=== PATIENT | male | born 1940 | race Caucasian/White ===

== ENCOUNTER 2017-01-02 16:24 | Inpatient (IN) | payer OTHER ==
[~2017-01-02] VITALS: Ht 175.3 cm; Wt 90.7 kg
[2017-01-02] VITALS (32 sets, daily range): BP systolic 57–121; BP diastolic 36–60; PULSE 97–115; TEMP 37.7; O2SAT 79–100; Ht 175.3 cm; Wt 90.7 kg
[2017-01-02] MEDS ORDERED: DOPamine 400MG / 250ML D5W ONE (17:19)
[2017-01-02] MEDS ORDERED: SODIUM BICARB 8.4% INJ 50 MEQ/50 ML SYR IV ONE ×2 (17:19→21:30)
[2017-01-02] MEDS ORDERED: EpINEphrine HCL INJ 4 MG in DEXTROSE 5% 250ML 250 ML IV PRN (17:22)
[2017-01-02 17:54] LABS: ISTAT CREATININE 3.3 mg/dl (0.6-1.3); ISTAT HEMOGLOBIN 9.5 g/dl (14.0-18.0); ISTAT IONIZED CALCIUM 1.09 mmol/l (1.12-1.32)
[2017-01-02 17:54] LABS: ISTAT ARTERIAL BLOOD GAS HCO3 18 meq/L (19-24); ISTAT ARTERIAL BLOOD GAS PCO2 50 mmHg (35-46); ISTAT ARTERIAL BLOOD GAS PO2 38 mmHg (80-95); ISTAT ARTERIAL BLOOD GAS pH 7.15 (7.35-7.45); ISTAT CARBON DIOXIDE 19 mEq/l (24-31); ISTAT HEMATOCRIT 27 % (42-52); ISTAT HEMOGLOBIN 9.2 g/dl (14.0-18.0); ISTAT SODIUM 137 mEq/L (135-144)
[2017-01-02 17:54] LABS: ISTAT ALLEN TEST Pass; ISTAT ARTERIAL BLOOD GAS HCO3 18 meq/L (19-24); ISTAT ARTERIAL BLOOD GAS PCO2 47 mmHg (35-46); ISTAT ARTERIAL BLOOD GAS PO2 63 mmHg (80-95); ISTAT ARTERIAL BLOOD GAS pH 7.19 (7.35-7.45); ISTAT CARBON DIOXIDE 19 mEq/l (24-31); ISTAT DELIVERY SYSTEM Ventilator; ISTAT FIO2 100 %; ISTAT PEEP 15; ISTAT RATE 18; ISTAT SITE R Radial; Vt 550
[2017-01-02] MEDS ORDERED: ALBUMIN HUMAN 25% 12.5 GM/50 ML VIAL IV ONE (18:00)
[2017-01-02] MEDS ORDERED: PATIENT'S ALLERGY INFO NEEDS ENTERED SCH (18:00)
[2017-01-02] MEDS ORDERED: NURSING VERBAL MED ORDER ONE ×2 (18:00→22:00)
[2017-01-02] MEDS ORDERED: HYDROCORTISONE IV 100 MG in SYRINGE 0 ML IV ONE (18:00)
[2017-01-02] MEDS: FENTANYL 1250MCG/250ML NSS 250 ML IV PRN (18:40)
[2017-01-02 18:44] LABS: HEMATOCRIT 29.2 % (42-52); MEAN CELL VOLUME 90.1 fL (80-100); MEAN CORPUSCULAR HEMOGLOBIN 29.3 pg (25-34); MEAN CORPUSCULAR HGB CONC 32.5 g/dl (32-36); MEAN PLATELET VOLUME 10.1 fL (7.4-10.4); PLATELET COUNT 257 K/uL (130-400); RED BLOOD COUNT 3.24 M/uL (4.7-6.1); WHITE BLOOD COUNT 4.01 K/uL (4.8-10.8)
[2017-01-02 18:51] LABS: INR 1.1 (0.9-1.1); PARTIAL THROMBOPLASTIN RATIO 1.2
[2017-01-02] MEDS ORDERED: MoRPHine SULFATE 4 MG/ML 1 ML CARP\\VIAL IV PRN (19:00)
[2017-01-02] MEDS ORDERED: LORAZEPAM 1 MG TAB PO PRN (19:00)
[2017-01-02] MEDS ORDERED: LORAZEPAM 2 MG/ML 1 ML VIAL IV PRN (19:00)
[2017-01-02] MEDS ORDERED: ACETAMINOPHEN 325 MG TAB PO PRN (19:00)
[2017-01-02 19:01] LABS: ALT/SGPT 34 U/L (12-78); AST/SGOT 52 U/L (15-37); BLOOD UREA NITROGEN 54 mg/dl (7-18); BUN/CREATININE RATIO 15.3 (10-20); CALCIUM 6.9 mg/dl (8.5-10.1); CARBON DIOXIDE 19 mmol/L (21-32); CHLORIDE 110 mmol/L (98-107); GLUCOSE 177 mg/dl (70-99); POTASSIUM 4.6 mmol/L (3.5-5.1); SODIUM 140 mmol/L (136-145)
[2017-01-02 19:08] LABS: COMPLETE YES; LYMPH ABS # 0.49 K/uL (1.2-3.4); LYMPHOCYTE % 12.3 %; NEUTROPHILS % 85.1 %; TOXIC GRANULATION 1+; VACUOLIZATION 1+
--- NOTE | 2017-01-02 19:13 | DIAGNOSTIC IMAGING REPORT ---
CHEST ONE VIEW PORTABLE CLINICAL HISTORY: Hypoxia. Pneumonia. COMPARISON STUDY: No previous studies for comparison. FINDINGS: The tip of the endotracheal tube is 8.1 cm above the sidra. The tip of the nasogastric tube is obscured but at least within the distal esophagus. There is no pneumothorax or pleural effusion. There is dense bibasilar consolidation. There is mild interstitial thickening without overt pulmonary edema. Cardiac size is within normal limits. IMPRESSION: 1. Tip of endotracheal tube 8.1 cm above the sidra. 2. Dense bibasilar consolidation suggestive of pneumonia, potentially on the basis of aspiration given this distribution. 3. Tip of nasogastric tube obscured but at least within the distal esophagus. Electronically signed by: Twin Herzog M.D. 01/02/2017 7:11 PM Dictated Date/Time: 01/02/2017 7:10 PM
[2017-01-02 19:24] LABS: ALB/GLOB RATIO 0.6 (0.9-2); ALKALINE PHOSPHATASE 61 U/L (45-117)
[2017-01-02 19:43] LABS: MAGNESIUM 2.1 mg/dl (1.8-2.4); PHOSPHORUS 3.9 mg/dl (2.5-4.9)
[2017-01-02] MEDS ORDERED: PIPERACILL/TAZOBAC CONSULT ACTIVE PRN (19:45)
[2017-01-02] MEDS ORDERED: SODIUM CHLORIDE 0.9% 500ML 500 ML IV SCH ×2 (19:45→21:30)
[2017-01-02] MEDS ORDERED: FENTANYL CITRATE INJ 50 MCG/1 ML 2 ML VIAL IV PRN (19:45)
[2017-01-02] MEDS ORDERED: PIPERACILL/TAZOBAC IV 2.25 GM in DEXTROSE 5% 100ML 100 ML IV SCH (19:45)
[2017-01-02] MEDS ORDERED: PANTOprazole INJ 40 MG in SYRINGE 0 ML IV ONE (19:45)
[2017-01-02] MEDS ORDERED: PATIENT'S HEIGHT AND/OR WEIGHT NEEDED SCH (19:45)
[2017-01-02] MEDS ORDERED: ONDANSETRON INJ 2 MG/ML 2 ML VIAL IV PRN (19:45)
[2017-01-02] MEDS ORDERED: PIPERACILL/TAZOBAC IV 3.375 GM in DEXTROSE 5% 100ML IV ONE (20:00)
[2017-01-02 20:04] LABS: ISTAT ARTERIAL BLOOD GAS HCO3 16 meq/L (19-24); ISTAT ARTERIAL BLOOD GAS PCO2 38 mmHg (35-46); ISTAT ARTERIAL BLOOD GAS PO2 73 mmHg (80-95); ISTAT ARTERIAL BLOOD GAS pH 7.24 (7.35-7.45); ISTAT CARBON DIOXIDE 18 mEq/l (24-31); ISTAT DELIVERY SYSTEM Ventilator; ISTAT FIO2 100 %; ISTAT PEEP 15; ISTAT RATE 18; ISTAT SITE Art Line; VE 13.2; Vt 550
[2017-01-02] MEDS: CHLORHEXIDINE GLUCONATE 0.12% 480 ML MT SCH (20:28)
[2017-01-02] MEDS: HEPARIN SOD 5000 UNIT/0.5 ML CARP SQ SCH (20:28)
[2017-01-02] MEDS: LEVOFLOXACIN / D5W 250 MG in PREMIXED IN D5W 50 ML IV SCH ×2 (20:29→21:28)
[2017-01-02] MEDS ORDERED: ALBUT/IPRATROP 3MG/0.5MG NEB 3 ML VIAL INH SCH (21:00)
[2017-01-02] MEDS ORDERED: LEVALBUTEROL/IPRATROPIUM NEB INH SCH (21:00)
[2017-01-02] MEDS ORDERED: SODIUM BICARB 8.4% INJ 50 MEQ/50 ML SYR IV STA (21:25)
[2017-01-02] MEDS: DOPamine 400MG / D5W 400 MG IV PRN (21:27)
[2017-01-02] MEDS: NOREPINEPHRINE BIT INJ 8 MG in DEXTROSE 5% 500ML 500 ML IV PRN (21:28)
[2017-01-02] MEDS ORDERED: PHARMACY GLYCEMIC MGMT CONSULT PRN (21:44)
[2017-01-02 21:58] LABS: URINE APPEARANCE CLOUDY (CLEAR); URINE BILIRUBIN NEG (NEG); URINE COLOR YELLOW; URINE NITRITE NEG (NEG); URINE SPECIFIC GRAVITY 1.019 (1.000-1.030); UROBILINOGEN NEG (NEG)
[2017-01-02 22:01] LABS: MANUAL MICROSCOPIC REQUIRED? NO; REVIEW REQ? YES
--- NOTE | 2017-01-02 22:13 | Progress Note ---
Progress Note Date of Service Jan 02, 2017. 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 He had an episode of aspiration at home which was witness by his daughter. Sats were 50' s when EMS arrived and reportedly he was poorly responsive. He was on epi, levophed and dopamine at max doses on arrival with [facility]. L femoral arterial and venous central lines placed emergently by me and without consent on arrival here. Family has not come to the hospital but I have spoken to his daughter via phone. My consultation has been dictated. Stat Echo has been performed.
--- NOTE | 2017-01-02 22:42 | History and Physical ---
History & Physical Date & Time of Service: Jan 02, 2017 at 22:15 Chief Complaint: Pneumonia Primary Care Physician: Washington Franco M.D. History of Present Illness Source: patient 76 y/o M Hx COPD, CAD, carotid stenosis, PVD, obesity. Pt is largely bedbound, looked after by family. He was poorly responsive today as reported by his daughter. She elected to feed him some ice cream which he promptly began to choke on and may have aspirated. He was transported to [facility] initially but was hypoxic into the 50s on arrival and required emergent intubation. As they were unable to care for a pt with this degree of acuity, he was life-flighted to [facility]. The pt was unresponsive, intubated and hypotensive requiring multiple pressors to support his BP on arrival. A CXR revealed B/L infiltrates consistent with PNM and possible aspiration. The pt was not able to contribute ti the H&P - the above is sourced from hospital records from [place] and from the pts family. Initial labs ordered - ARF is present on a chem 7 - lactic and trop pending Past Medical/Surgical History 1) CAD - Histroy of abnormal stress followed by a cath 06/05 Allergies Coded Allergies: Iron (Unverified Allergy, Unknown, unknown, 01/02/17) reaction unknown Sulfa Antibiotics (Unverified Allergy, Unknown, unknown, 01/02/17) Physical Exam Vital Signs Date Time Temp Pulse Resp B/P (MAP) Pulse Ox O2 Delivery O2 Flow Rate FiO2 01/02/17 20:00 37.7 01/02/17 19:40 100 01/02/17 19:30 103 16 95 01/02/17 19:30 103 16 95 01/02/17 19:30 103 16 95 01/02/17 19:15 104 18 100 01/02/17 19:15 104 18 100 01/02/17 19:15 104 18 100 01/02/17 19:01 105 18 89/44 97 01/02/17 19:01 105 18 89/44 97 01/02/17 19:00 105 19 98 01/02/17 19:00 105 19 98 01/02/17 19:00 105 18 89/44 (59) 97 01/02/17 18:45 109 19 90 01/02/17 18:30 107 27 91 01/02/17 18:15 112 31 91 01/02/17 18:01 115 30 84/51 86 01/02/17 18:00 109 24 90 01/02/17 18:00 115 30 84/51 (62) 86 01/02/17 17:46 114 22 72/49 79 01/02/17 17:45 113 28 90 01/02/17 17:45 114 22 72/49 (57) 79 01/02/17 17:41 109 31 76/51 90 01/02/17 17:39 113 27 67/36 89 01/02/17 17:30 115 23 01/02/17 17:30 110 28 76/38 (51) 88 01/02/17 17:30 100 01/02/17 17:28 112 21 67/ 89 01/02/17 17:21 110 28 76/38 88 01/02/17 17:16 107 28 57/42 01/02/17 17:15 107 28 57/42 (47) 01/02/17 17:15 109 29 90 General Appearance: + pertinent finding (Unresponsive - pupils equal and sluggish) Head: normocephalic, atraumatic Eyes: normal inspection, PERRL, EOMI ENT: normal ENT inspection, pharynx normal Neck: supple, + JVD Respiratory/Chest: + decreased breath sounds, + pertinent finding (limited exam due to large air noises) Cardiovascular: normal peripheral pulses, + tachycardia, + systolic murmur Abdomen/GI: normal bowel sounds, non tender, soft Extremities/Musculoskelatal: + pedal edema Neurologic/Psych: + pertinent finding (unresponsive) Skin: warm/dry, no rash, + pertinent finding (pallor is present) Diagnostics Laboratory Results Results Past 24 Hours Test 01/02/17 17:22 01/02/17 17:35 01/02/17 17:43 01/02/17 18:11 Range/Units Bedside Hemoglobin 9.2 9.5 14.0-18.0 g/dl Bedside Hematocrit 27 28 42-52 % Bedside Blood Gas pH (LAB) 7.15 7.19 7.35-7.45 Bedside Blood Gas pCO2 (LAB) 50 47 35-46 mmHg Bedside Blood Gas pO2 (LAB) 38 63 80-95 mmHg Bedside Blood Gas HCO3 (LAB) 18 18 19-24 meq/L Bedside Blood Gas Total CO2 19 19 24-31 mEq/l Bedside Blood Gas Base Excess (LAB) -11.0 -10.0 -9-1.8 meq/L Bedside Blood Gas O2 Saturation 57.0 86.0 90-95 % Bedside Sodium 137 139 135-144 mEq/L Bedside Potassium 4.6 4.7 3.3-5.0 mEq/L Blood Gas Sample Site R Radial Ra Test Pass Oxygen Delivery Device Ventilator Bedside Oxygen Rate (breaths/min) 18 Bedside FiO2 100 % Blood Gas Tidal Volume 550 Blood Gas PEEP 15 Bedside Chloride 108 101-112 mEq/L Bedside Total CO2 20 24-31 mEq/l Anion Gap 17.0 11.0 3-11 mmol/L Bedside Blood Urea Nitrogen 54 7-18 mg/dl Bedside Creatinine 3.3 0.6-1.3 mg/dl Bedside Glucose (other) 189 70-99 mg/dl Bedside Ionized Calcium (Gavin) 1.09 1.12-1.32 mmol/l White Blood Count 4.01 4.8-10.8 K/uL Red Blood Count 3.24 4.7-6.1 M/uL Hemoglobin 9.5 14.0-18.0 g/dL Hematocrit 29.2 42-52 % Mean Corpuscular Volume 90.1 80-100 fL Mean Corpuscular Hemoglobin 29.3 25-34 pg Mean Corpuscular Hemoglobin Concent 32.5 32-36 g/dl Platelet Count 257 130-400 K/uL Mean Platelet Volume 10.1 7.4-10.4 fL RDW Standard Deviation 51.7 36.4-46.3 fL RDW Coefficient of Variation 15.7 11.5-14.5 % Neutrophils % (Manual) 85.1 % Lymphocytes % (Manual) 12.3 % Monocytes % (Manual) 2.6 % Neutrophils # (Manual) 3.41 1.4-6.5 K/uL Total Absolute Neutrophils 3.41 1.4-6.5 K/uL Lymphocytes # (Manual) 0.49 1.2-3.4 K/uL Total Absolute Lymphocytes 0.49 1.2-3.4 K/uL Monocytes # (Manual) 0.10 0.11-0.59 K/uL Toxic Granulation 1+ Toxic Vacuolation 1+ Prothrombin Time 12.0 9.0-12.0 SECONDS Prothromb Time International Ratio 1.1 0.9-1.1 Activated Partial Thromboplast Time 32.4 21.0-31.0 SECONDS Partial Thromboplastin Ratio 1.2 Sodium Level 140 136-145 mmol/L Potassium Level 4.6 3.5-5.1 mmol/L Chloride Level 110 98-107 mmol/L Carbon Dioxide Level 19 21-32 mmol/L Blood Urea Nitrogen 54 7-18 mg/dl Creatinine 3.50 0.60-1.40 mg/dl Estimated GFR () 18.6 Estimated GFR (Non- 16.0 BUN/Creatinine Ratio 15.3 10-20 Random Glucose 177 70-99 mg/dl Calcium Level 6.9 8.5-10.1 mg/dl Phosphorus Level 3.9 2.5-4.9 mg/dl Magnesium Level 2.1 1.8-2.4 mg/dl Total Bilirubin 1.1 0.2-1 mg/dl Aspartate Amino Transf (AST/SGOT) 52 15-37 U/L Alanine Aminotransferase (ALT/SGPT) 34 12-78 U/L Alkaline Phosphatase 61 45-117 U/L Total Protein 5.9 6.4-8.2 gm/dl Albumin 2.2 3.4-5.0 gm/dl Globulin 3.7 2.5-4.0 gm/dl Albumin/Globulin Ratio 0.6 0.9-2 Test 01/02/17 19:51 01/02/17 21:27 01/02/17 21:34 Range/Units Blood Gas Sample Site Art Line Bedside Blood Gas pH (LAB) 7.24 7.35-7.45 Bedside Blood Gas pCO2 (LAB) 38 35-46 mmHg Bedside Blood Gas pO2 (LAB) 73 80-95 mmHg Bedside Blood Gas HCO3 (LAB) 16 19-24 meq/L Bedside Blood Gas Total CO2 18 24-31 mEq/l Bedside Blood Gas Base Excess (LAB) -11.0 -9-1.8 meq/L Bedside Blood Gas O2 Saturation 92.0 90-95 % Ar Test NA Oxygen Delivery Device Ventilator Bedside Oxygen Rate (breaths/min) 18 Blood Gas Minute Ventilation 13.2 Bedside FiO2 100 % Blood Gas Tidal Volume 550 Blood Gas PEEP 15 Creatine Kinase MB Ratio 0-3.0 Urine Color YELLOW Urine Appearance CLOUDY CLEAR Urine pH 5.0 4.5-7.5 Urine Specific [place] 1.019 1.000-1.030 Urine Protein TRACE NEG Urine Glucose (UA) NEG NEG Urine Ketones NEG NEG Urine Occult Blood 3+ NEG Urine Nitrite NEG NEG Urine Bilirubin NEG NEG Urine Urobilinogen NEG NEG Urine Leukocyte Esterase NEG NEG Microbiology Results 01/02/17 MRSA DNA Surveillance Screen - Final, Complete Specimen Negative for MRSA by DNA Probe 01/02/17 Gram Stain, Ordered Pending 01/02/17 Sputum Culture, Ordered Pending 01/02/17 Urine Culture, Ordered Pending Diagnostic Radiology CXR 1. Tip of endotracheal tube 8.1 cm above the sidra. 2. Dense bibasilar consolidation suggestive of pneumonia, potentially on the basis of aspiration given this distribution. 3. Tip of nasogastric tube obscured but at least within the distal esophagus. Impression Assessment and Plan 76 y/o M Hx COPD, CAD, carotid stenosis, PVD, obesity. Pt is largely bedbound, looked after by family. He was poorly responsive today as reported by his daughter. She elected to feed him some ice cream which he promptly began to choke on and may have aspirated. He was transported to [facility] initially but was hypoxic into the 50s on arrival and required emergent intubation. As they were unable to care for a pt with this degree of acuity, he was life-flighted to [facility]. The pt was unresponsive, intubated and hypotensive requiring multiple pressors to support his BP on arrival. A CXR revealed B/L infiltrates consistent with PNM and possible aspiration. 1) Shock - presumed septic due to aspiration PNM. However, the pt may have been anoxic for an extended period prior to arrival leading to cardiac ischemia and a degree of cardiogenic shock. A stat echo is pending and if his EF is reduced we would consider addition of Dobutamine. Clinically, there are no signs of marked volume overload that would indicate cardiogenic shock. The pt has been placed on broad spectrum coverage with Zosyn and remains on pressor support. 2) CAD - Trop pending - should remain on ASA, Statin - would not tolerate B edilia presently 3) COPD - Placed on scheduled nebs and should receive steroids due to degree of illness although bronchospasm is not apparent 4) ARF - likely acute on chronic - Aggressive IVF - trend BMP Full code - Heparin prophylaxis - increase to full dose if evidence of ACS/ elevated trop Total time for this admit including review of labs, meds, EKG, critical care time - discussion with attending at [place] Level of Care Critical Care Resuscitation Status FULL RESUSCITATION VTE Prophylaxis VTE Risk Assessment Done? Y/N: Yes Risk Level: High Given or contraindicated: Unfractionated heparin SQ
[2017-01-02] MEDS ORDERED: DEXTROSE 50% 50 ML SYR IV PRN (23:00)
[2017-01-02] MEDS ORDERED: GLUCOSE 10 TABS/TUBE PO PRN (23:00)
[2017-01-02] MEDS ORDERED: GLUCAGON FOR INJ 1 MG VIAL SQ PRN (23:00)
[2017-01-02] MEDS ORDERED: GLUCOSE 40% GEL 15 GM TUBE PO PRN (23:00)
[2017-01-02] MEDS: VASOPRESSIN INJ 50 UNITS in SODIUM CHLORIDE 0.9% 500ML 500 ML IV PRN (23:13)
[2017-01-02] MEDS: INSULIN ASPART 100 UNITS/ML 3 ML PEN SC SCH (23:34)
[2017-01-02 23:38] LABS: CKMB/CK RATIO 0.6 (0-3.0)
--- NOTE | 2017-01-02 23:39 | CRITICAL CARE CONSULTATION ---
DATE OF CONSULTATION: 01/02/2017 CHIEF COMPLAINT: Shortness of breath. HISTORY OF PRESENT ILLNESS: The patient is a 76-year-old man, who was transferred from [facility] to [facility] this afternoon after he was found, reportedly, with agonal respirations by EMS. His daughter tells me he is not very mobile around the house, primarily due to weakness and what is, probably, some ongoing debilitation. He spends much of his time in the wheelchair or in bed. He feels like he was in his normal state of health until this afternoon; she was feeding him ice cream and he started to choke on it. Eventually, the ice cream came out his nose, but he was not able to breathe. He had a very panicked look on his face and eventually, was able take a few breaths. She thought he was okay and left the bedroom, but came back to find him sideways and part way off the bed, telling her, "the good Lord is coming to get me." He also reports that earlier in the day, he was incontinent in bed and had 2 episodes of diarrhea. He has been coughing for the past several days, but not coughing anything up. It is not unusual for him to have frequent bowel movements. The patient was taken to [facility], where he was intubated and reportedly, a white creamy material was coming out of the endotracheal tube. He was persistently hypotensive and was given 3 liters of IV fluids and started on Levophed. It looks as if he was hypotensive for quite some time. A CT scan of the head showed no acute process and a CT scan of the chest, abdomen and pelvis showed extensive bilateral airspace disease, age indeterminate, slightly displaced fractures, posterior right 11th and 12th ribs, a 48 x 47 mm fusiform infrarenal abdominal aortic aneurysm, minimally increased in size, mild esophageal wall thickening, other chronic findings. Our hospitalist team was contacted for possible transfer. I called the Emergency Department and discussed the patient's care with the attending there, as [facility] was packing him up to come here. When the patient arrived here, he was hypotensive with a blood pressure in the 80s, on Levophed, epinephrine and dopamine at nearly maximum doses. Oxygen saturations were 80%-85%. They immediately increased his PEEP and he was already on 100% FiO2. I emergently placed a left femoral arterial and triple lumen catheters. He is not having any secretions from the endotracheal tube. PAST MEDICAL HISTORY: Coronary artery disease, status post a left circumflex stent on 10/09/2016 at [facility], hypertension, hyperlipidemia, obesity, CVA. PAST SURGICAL HISTORY: Status post carotid endarterectomy. ALLERGIES: MORPHINE, IBUPROFEN AND POSSIBLY SULFA ANTIBIOTICS. OUTPATIENT MEDICATIONS: Have not been confirmed. The medication list I have presently is amlodipine 5 mg at bedtime, aspirin 81 mg daily, atorvastatin 20 mg at bedtime, Coreg 3.125 mg b.i.d., Plavix 75 mg daily, doxepin 20 mg at bedtime, isosorbide mononitrate 30 mg q.a.m., lisinopril 2.5 mg daily, melatonin q.p.m., nitroglycerin sublingual p.r.n., OxyContin, unknown dose b.i.d., Effexor 75 mg b.i.d. Again, these have not been verified. SOCIAL HISTORY: He lives with his in [place]. His daughter, Seema, tells me she is his primary caregiver. He has smoked at least three-quarter pack of cigarettes for many years and does not drink any alcohol. FAMILY HISTORY: Noncontributory due to his age. REVIEW OF SYSTEMS: Difficult to obtain. Family is not at the bedside. I spent a significant amount of time on the telephone with his daughter, Seema. He seems to have been in his usual poor state of health before he started coughing and had the event today. PHYSICAL EXAMINATION: VITAL SIGNS: Temperature 37.7, heart rate 110, respiratory rate 16, blood pressure 89-100/40s-50s, oxygen saturation 95%. VENTILATOR SETTINGS: Assist control, rate 18, tidal volume 500, FiO2 100%, PEEP 15. NEUROLOGIC: He will withdraw to pain with the bilateral lower extremities. He opens his eyes, but does not follow commands. HEENT: Pupils are equal, but small, bilaterally. There is an endotracheal tube in place. NECK: Shows a left carotid endarterectomy scar. Trachea midline. LUNGS: With decreased breath sounds throughout, particularly at the bases, where there are some mild rales. HEART: Tachycardic, regular. I do not hear any murmurs. ABDOMEN: Mildly distended, firm, hypoactive bowel sounds. No tympany. EXTREMITIES: Somewhat cool. No edema. Radial and dorsalis pedis pulses are 1+ bilaterally. He has very thick toenails. LABORATORY DATA: From [facility], white blood cell count 4.01, hemoglobin 9.5, hematocrit 29.2, platelets 257. Sodium 140, potassium 4.6, chloride 110, CO2 19. BUN 54, creatinine 3.5, blood sugar 177, calcium 6.9. Total bilirubin 1.1, AST 52, ALT is 34. Total protein 5.9, albumin 2.2. PT 12, INR 1.1, PTT 32.4, pH 7.15, pCO2 of 50, pO2 38, HCO3 18. Urinalysis pending. EKG shows sinus tachycardia with nonspecific ST-T wave changes. Portable chest x-ray shows the endotracheal tube to be far above the sidra with bibasilar consolidation. IMPRESSION: 1. Acute hypoxemic respiratory failure, secondary to aspiration. It is unclear to me whether or not this man might have had an anoxic injury. Reportedly, his oxygen saturations were in the 50s when EMS arrived. 2. Hypotension, which, I believe, is likely a combination of hypovolemia and possibly, severe sepsis or septic shock. A stat echocardiogram did not show overt left ventricular dysfunction. He continues to require epinephrine, Levophed and dopamine infusions. 3. Acute kidney injury. 4. Coronary artery disease, status post a left circumflex stent in September of this year. 5. Abdominal aortic aneurysm. 6. Anemia. 7. History of hypertension. 8. Aspiration pneumonia. 9. History of cerebrovascular accident. PLAN: NEUROLOGIC: Continue fentanyl infusion. He also has p.r.n. fentanyl. Consider EEG tomorrow. PULMONARY: Wean the FiO2 for oxygen saturations greater than or equal to 92%. His lungs are not particularly stiff presently, with peak airway pressures in the 20s. Plateau pressure is pending. We are making some progress on his hypercapnia. Consider paralysis and low tidal volume high PEEP strategy, if his lungs become more stiff. Continue bronchodilators. CARDIOVASCULAR: Rule out myocardial infarction with serial cardiac enzymes. Wean vasopressors, I would like to get the dopamine off first, if at all possible. Consider adding aspirin. Await the echocardiogram report. GASTROINTESTINAL: Maintain n.p.o. and give Protonix IV for GI prophylaxis. RENAL: He has a Garcia in place. Urinalysis is pending. Urine output is starting to improve. Watch the potassium and consider renal consult, if his creatinine continues to rise. Hopefully, he will not need continuous renal replacement therapy. HEMATOLOGY: Subcutaneous heparin for DVT prophylaxis. I will not put him on Plavix, until I can verify that he was actually on it before this event. INFECTIOUS DISEASE: I have re-ordered the Zosyn. I have also added Levaquin. I am concerned about giving him vancomycin, secondary to his renal dysfunction. Hold any MRSA coverage for now. ENDOCRINE: He is receiving hydrocortisone 100 mg IV q. 8 hours. He has a multisystem organ failure and I tried to impress upon his daughter how ill he is. Her questions were answered. The patient's family is not coming to the hospital tonight, although I suggested they do so. Please call me with any questions or concerns. Critical care time, excluding procedures, 130 minutes.
[2017-01-03] VITALS (39 sets, daily range): BP systolic 93–147; BP diastolic 43–98; PULSE 51–101; TEMP 36.9–37.9; O2SAT 92–100
[2017-01-03] MEDS: HYDROCORTISONE IV 100 MG in SYRINGE 0 ML IV SCH ×2 (01:38→09:12)
[2017-01-03] MEDS: IPRATROPIUM BROMIDE HFA INHALER INH SCH ×4 (02:00→18:50)
[2017-01-03] MEDS: ALBUTEROL HFA 8 GM INHALER INH SCH ×4 (02:00→18:50)
--- NOTE | 2017-01-03 02:01 | OPERATIVE REPORT ---
DATE OF OPERATION: 01/02/2017 PROCEDURE: Left femoral arterial catheter placement and venous triple lumen catheter placement. PRE-PROCEDURE DIAGNOSIS: Acute hypoxemic respiratory failure. POST-PROCEDURE DIAGNOSIS: Same. INDICATION: Need for continuous blood pressure monitoring and adequate IV access for multiple vasopressors. Time of the procedure was approximately 6:00 p.m. today, which is January 02. PROCEDURE: These lines were done emergently and without consent, secondary to the patient's acuity of illness. He was on maximum doses of dopamine, Levophed and epinephrine with a cuff blood pressure of 70. A timeout was performed and the patient was placed supine. The left groin was shaved with clippers. I donned a hat, mask, sterile gown and sterile gloves and prepared the left groin with chlorhexidine. I then draped the patient in sterile fashion. Using the ultrasound, I was able to identify the left femoral artery and placed a 20-gauge needle from the [employer] arterial catheterization kit into the artery. A wire was placed through the needle. The needle was removed. A 12-cm arterial catheter was placed over the wire and connected to a transducer. This was secured with a StatLock. I then used an 18-gauge needle to cannulate the left femoral vein. A wire was placed through the needle and the needle was removed. A #11 scalpel blade was used to make a sky in the skin adjacent to the wire, before the vein was dilated over the wire. The triple lumen catheter was then placed over the wire and the wire was removed. All 3 ports had good blood flow and flushed easily. The line was then sutured into place. Hemostasis was achieved and there was no hematoma. The patient tolerated the procedure well. He did receive some lidocaine, 1%, adjacent to his femoral vasculature prior to cannulating either vessel. I notified his family of the procedures via telephone later on this evening. I attest to the content of the Intraoperative Record and any orders documented therein. Any exception s are noted below.
[2017-01-03] MEDS: DOPamine 400MG / D5W 400 MG IV PRN (02:07)
[2017-01-03] MEDS: NOREPINEPHRINE BIT INJ 8 MG in DEXTROSE 5% 500ML 500 ML IV PRN ×2 (02:08→09:40)
[2017-01-03] MEDS: PIPERACILL/TAZOBAC IV 3.375 GM in DEXTROSE 5% 100ML IV SCH ×2 (03:39→16:27)
[2017-01-03] MEDS ORDERED: INSULIN GLARGINE SOLOSTAR 100 UNITS/ML 3 ML PEN SC STA (03:52)
[2017-01-03] MEDS ORDERED: INSULIN ASPART 100 UNITS/ML 3 ML PEN SC STA (03:54)
[2017-01-03] MEDS ORDERED: INSULIN ASPART 100 UNITS/ML 3 ML PEN SC SCH (04:00)
[2017-01-03 05:12] LABS: HEMATOCRIT 27.2 % (42-52); MEAN CELL VOLUME 87.7 fL (80-100); MEAN CORPUSCULAR HEMOGLOBIN 29.4 pg (25-34); MEAN CORPUSCULAR HGB CONC 33.5 g/dl (32-36); MEAN PLATELET VOLUME 9.5 fL (7.4-10.4); PLATELET COUNT 195 K/uL (130-400); WHITE BLOOD COUNT 10.26 K/uL (4.8-10.8)
[2017-01-03 05:37] LABS: BUN/CREATININE RATIO 17.2 (10-20); CALCIUM 6.9 mg/dl (8.5-10.1); CREATININE 2.7 mg/dl (0.60-1.40); MAGNESIUM 1.8 mg/dl (1.8-2.4); POTASSIUM 4.5 mmol/L (3.5-5.1)
[2017-01-03] MEDS: HEPARIN SOD 5000 UNIT/0.5 ML CARP SQ SCH ×3 (05:50→20:07)
[2017-01-03] MEDS: INSULIN ASPART 100 UNITS/ML 3 ML PEN SC SCH ×3 (05:51→18:00)
[2017-01-03 05:52] LABS: CKMB/CK RATIO 0.6 (0-3.0); PHOSPHORUS 2.9 mg/dl (2.5-4.9)
[2017-01-03 07:37] LABS: COMPLETE YES; DOHLE BODIES 2+; ECHINOCYTES 1+; LYMPH ABS # 0.27 K/uL (1.2-3.4); LYMPHOCYTE % 2.6 %; META ABS # 1.07 K/uL (0-0); METAMYELOCYTE % 10.4 %; NEUTROPHILS % 79.2 %; TOXIC GRANULATION 2+; VACUOLIZATION 1+
--- NOTE | 2017-01-03 07:38 | DIAGNOSTIC IMAGING REPORT ---
CHEST ONE VIEW PORTABLE CLINICAL HISTORY: respiratory failure s/p aspiration COMPARISON STUDY: 01/02/2017 FINDINGS: The cardiac and mediastinal contours remain stable. A nasogastric tube is again evident. There is an endotracheal tube 6.9 cm above the sidra. There are bilateral pulmonary airspace opacities with a lower lung zone predominance. These remain similar.[ No pleural effusions are visualized. IMPRESSION: 1. Persistent bilateral pulmonary airspace opacities with a lower lung zone predominance 2. Endotracheal tube 6.9 cm above the sidra Electronically signed by: Camilo Washburn M.D. 01/03/2017 7:37 AM Dictated Date/Time: 01/03/2017 7:36 AM
[2017-01-03] MEDS ORDERED: PNEUMOCOCCAL ADMINISTRATION CHARGE ONE (08:00)
[2017-01-03] MEDS ORDERED: PNEUMOCOCCAL POLYSACCHARIDES 25 MCG/0.5 ML VIAL/SYR IM. ONE (08:00)
--- NOTE | 2017-01-03 08:06 | ECHOCARDIOGRAM REPORT ---
*NOTICE TO RECEIVING LIBERTARIAN AGENCY This information is strictly Confidential and protected under [place] law. [place] law prohibits you from making any further disclosure of this information unless further disclosure is expressly permitted by the written consent of the person to whom it pertains or is authorized by law. A general authorization for the release of medical or other information is not sufficient for this purpose. Hospital accepts no responsibility if the information is made available to any other person, INCLUDING THE PATIENT. Interpretation Summary * Name: MARIANNE RODRIGUEZ Study Date: 01/02/2017 07:53 PM BP: 89/44 mmHg * [facility] HR: 103 * : 1940 (M/d/yyyy) Gender: Male * Age: 76 yrs Ethnicity: CA * Ordering Physician: Vero Spann * Referring Physician: Reinier Natarajan * Performed By: Génesis Long RDCS * * Reason For Study: Shock * -- Conclusions -- * The study was technically limited. * Limited views were obtained. * Left ventricular systolic function is low normal. * Grade I diastolic dysfunction, (abnormal relaxation pattern). * Mild to moderate valvular aortic stenosis. * Right ventricular systolic pressure is normal. Procedure Details * A complete two-dimensional transthoracic echocardiogram was performed (2D, M-mode, Doppler and color flow Doppler). * The study was technically limited. * The study was technically difficult. * There were technical limitations due to patient'ssupine positioning while on mechanical ventilation * Limited views were obtained. Left Ventricle * The left ventricle is grossly normal size. * Left ventricular systolic function is low normal. * Ejection Fraction = 50-55%. * Grade I diastolic dysfunction, (abnormal relaxation pattern). Right Ventricle * The right ventricle is grossly normal size. * The right ventricular systolic function is normal. * The right ventricular systolic function is normal as assessed by tricuspid annular plane systolic excursion (TAPSE) (normal >1.5 cm). Atria * The left atrial size is normal. * Right atrial size is normal. Mitral Valve * The mitral valve is grossly normal. * Significant mitral regurgitation is absent. Tricuspid Valve * There is mild tricuspid regurgitation. * Right ventricular systolic pressure is normal. Aortic Valve * The aortic valve is trileaflet. * Mild to moderate valvular aortic stenosis. * Gradients are possibly underestimated due to technical limitations. Not severe . * There is no significant aortic regurgitation. Great Vessels * The aortic root is normal size. Pericardium/Pleural * There is no pericardial effusion. Great Vessels * Normal inferior vena cava diameter and respiratory variation suggests normal central venous pressure. MMode 2D Measurements and Calculations IVSd 0.81 cm LVIDd 4.3 cm LVIDs 2.9 cm LVPWd 0.74 cm IVS/LVPW 1.1 FS 31.7 % EDV(Teich) 83.0 ml ESV(Teich) 33.3 ml EF(Teich) 59.9 % EDV(cubed) 79.4 ml ESV(cubed) 25.4 ml EF(cubed) 68.1 % LV mass(C)d 101.4 grams SV(Teich) 49.8 ml SV(cubed) 54.1 ml Ao root diam 3.8 cm Ao root area 11.4 cm\S\2 LVOT diam 2.0 cm LVOT area 3.2 cm\S\2 Doppler Measurements and Calculations MV E max pascual 73.7 cm/sec MV A max pascual 93.1 cm/sec MV E/A 0.79 MV dec time 0.24 sec Ao V2 max 232.8 cm/sec Ao max PG 21.7 mmHg Ao max PG (full) 15.1 mmHg Ao V2 mean 167.5 cm/sec Ao mean PG 12.4 mmHg Ao V2 VTI 36.6 cm NILSA(V,A) 1.7 cm\S\2 NILSA(V,D) 1.7 cm\S\2 LV V1 max PG 6.6 mmHg LV V1 max 128.5 cm/sec SV(Ao) 415.8 ml PA V2 max 103.2 cm/sec PA max PG 4.3 mmHg PA acc slope 771.4 cm/sec\S\2 PA acc time 0.12 sec TR max pascual 157.5 cm/sec PA pr(Accel) 23.5 mmHg
[2017-01-03 08:14] LABS: ISTAT ARTERIAL BLOOD GAS HCO3 18 meq/L (19-24); ISTAT ARTERIAL BLOOD GAS PCO2 35 mmHg (35-46); ISTAT ARTERIAL BLOOD GAS PO2 118 mmHg (80-95); ISTAT ARTERIAL BLOOD GAS pH 7.32 (7.35-7.45); ISTAT CARBON DIOXIDE 19 mEq/l (24-31); ISTAT DELIVERY SYSTEM Ventilator; ISTAT FIO2 70 %; ISTAT PEEP 15; ISTAT RATE 2; ISTAT SITE Art Line; VE 13.1; Vt 550
[2017-01-03] MEDS: PANTOprazole INJ 40 MG in SYRINGE 0 ML IV SCH (09:12)
[2017-01-03] MEDS: CHLORHEXIDINE GLUCONATE 0.12% 480 ML MT SCH ×2 (09:13→21:30)
[2017-01-03] MEDS: MAGNESIUM SULFATE 1GM / D5W 1 GM in PREMIXED IN D5W 100 ML IV SCH ×2 (10:07→11:16)
[2017-01-03] MEDS ORDERED: PROPOFOL IV EMULSION 10 MG/ML 100 ML VIAL IV ONE (11:56)
--- NOTE | 2017-01-03 12:27 | CRITICAL CARE PROGRESS NOTE ---
DATE: 01/03/2017 GENERAL INFORMATION: This is a 76-year-old man transferred from [facility] yesterday evening secondary to aspiration pneumonitis and acute hypoxemic respiratory failure. He was also in shock and required Levophed, dopamine and epinephrine at maximum doses. Over the course of the night last night, his vasopressors were weaned. He is now off epinephrine and dopamine. Vasopressin was also added last night. The Levophed is being weaned as well. He is not having any significant endotracheal tube secretions. He is not presently on tube feeds. He has not had a bowel movement. PHYSICAL EXAMINATION: VITAL SIGNS: Maximum temperature 37.9, heart rate 92-105, respiratory rate 14-18, blood pressure 130-150/60s-70s, oxygen saturation 99%. Ventilator settings: Assist control, tidal volume 550, rate 18, FiO2 60%, PEEP 12. 24-hour fluid balance positive 957 mL. NEUROLOGIC: Opens eyes, follows commands. CAM assessment is positive. LUNGS: Very decreased breath sounds at the bases. I do not hear any wheezes or rhonchi. Some rales in the right base, very faintly. HEART: Regular rate and rhythm. ABDOMEN: Firm, nondistended, nontender. Active bowel sounds. EXTREMITIES: Warm, trace edema throughout. MEDICATIONS AND INFUSIONS: Acetaminophen, albuterol, chlorhexidine, fentanyl infusion, p.r.n. fentanyl, subcutaneous heparin, hydrocortisone, NovoLog, Atrovent, Levaquin day 2, magnesium sulfate, norepinephrine, Zofran, Protonix, Zosyn day 2, vasopressin. POSSIBLE OUTPATIENT MEDICATIONS: Isosorbide mononitrate 30 mg daily, venlafaxine 75 mg b.i.d., amlodipine 5 mg daily, carvedilol 3.125 mg b.i.d., atorvastatin 20 mg daily, and lisinopril 2.5 mg daily. LABORATORY DATA: White blood cell count 10.26, hemoglobin 9.1, hematocrit 27.2, platelets 195. Sodium 137, potassium 4.5, chloride 106, CO2 of 20, BUN 46, creatinine 2.7, blood sugar 259, calcium 6.9, direct bilirubin 0.5, AST 50, troponin 0.15. Total CPK 1418. Sputum Gram stain shows few Gram-positive cocci and rare yeast, culture pending, urine culture pending. Portable chest x-ray from this morning shows persistent bilateral pulmonary airspace opacities with lower lung predominance and endotracheal tube 7 cm above the sidra. IMPRESSION: 1. Acute hypoxemic respiratory failure secondary to aspiration, now with likely pneumonitis and acute respiratory distress syndrome, improving. He is on bronchodilators as well as empiric antibiotics. 2. Shock, which was likely a combination of hypovolemia and sepsis. Improved. 3. Acute kidney injury, improved. 4. History of coronary artery disease, status post left circumflex stent. 5. Abdominal aortic aneurysm, essentially unchanged on most recent CT. 6. Anemia, stable, no signs of acute blood loss. 7. History of cerebrovascular accident. 8. Hypomagnesemia. 9. Very mildly elevated troponin. PLAN: NEUROLOGIC: Continue fentanyl infusion. He also has p.r.n. fentanyl. PULMONARY: The FiO2 has been weaned to 60% this morning. Wean the PEEP gradually. Depending on where his vent settings are this afternoon, consider a CPAP trial. Continue bronchodilators and empiric antibiotics. CARDIOVASCULAR: Wean vasopressors. Of note, echocardiogram report has been reviewed. Consider adding back his atorvastatin. His medications will need to be verified GASTROINTESTINAL: Continue n.p.o. for today unless he is completely off vasopressors for several hours by the end of the day. Continue IV Protonix for GI prophylaxis. RENAL: Adequately adjust medication dosing and avoid nephrotoxins. I suspect his renal dysfunction is secondary to ATN. INFECTIOUS DISEASE: Await sputum culture and continue Zosyn and Levaquin. Could consider Zyvox, although MRSA is negative. HEME: Continue subcutaneous heparin. Add SCDs. ENDOCRINE: Wean hydrocortisone, glycemic consult. Overall, he has done quite well considering his acuity of illness yesterday when he arrived here. I will update his family when I see them. Evidently they are due to visit sometime today. Critical care time 60 minutes. MARIA LUISAD
--- NOTE | 2017-01-03 14:42 | Pharmacy Progress Note ---
Glycemic Control Intl Consult Date of Service Jan 03, 2017. Scope Glycemic Pharmacist consulted by Dr Spann on 01/02/17 for glycemic control and to write orders per [facility] inpatient glycemic control protocol. Objective Weight (Kilograms): 95.700 Accuchecks BSG (last 24hrs): Test 01/02/17 18:11 01/03/17 05:04 01/03/17 12:12 Random Glucose 177 mg/dl (70-99) 259 mg/dl (70-99) Bedside Glucose 179 mg/dl (70-99) Laboratory Data (last 24hrs) Test 01/02/17 17:43 01/02/17 18:11 01/03/17 05:04 Anion Gap 17.0 mmol/L 11.0 mmol/L 11.0 mmol/L BUN/Creatinine Ratio 15.3 17.2 Blood Urea Nitrogen 54 mg/dl 46 mg/dl Creatinine 3.50 mg/dl 2.70 mg/dl Potassium Level 4.6 mmol/L 4.5 mmol/L Sodium Level 140 mmol/L 137 mmol/L White Blood Count 4.01 K/uL 10.26 K/uL Red Blood Count 3.24 M/uL 3.10 M/uL Hemoglobin 9.5 g/dL 9.1 g/dL Hematocrit 29.2 % 27.2 % Mean Corpuscular Volume 90.1 fL 87.7 fL Mean Corpuscular Hemoglobin 29.3 pg 29.4 pg Mean Corpuscular Hemoglobin Concent 32.5 g/dl 33.5 g/dl Platelet Count 257 K/uL 195 K/uL Mean Platelet Volume 10.1 fL 9.5 fL Recent Pertinent Medications Outpatient Anti-diabetic Regimen: * none * HbA1c -- none on file, will order with tomorrow's am labs Risk Factors for Insulin Resistance: * Steroids: Hydrocortisone IV 100mg q8h --> taper to 50mg q8h starting this evening * Infection: LVQ, Zosyn for suspected aspiration pna * Pressors: Levophed, Vasopressin * Diet: NPO * Mechanical Ventilation: yes, fentanyl gtt for sedation Assessment & Plan ASSESSMENT: * Patient is a 76yo non-diabetic male, currently with significant stress-induced /steroid-induced hyperglycemia. * Lantus 15 units x1 dose given early this morning, with some resolution in BSG (271 --> 179). * Steroids are tapering this evening from Hydrocortisone 100mg IV q8h --> 50mg IV q8h. * Expect that BSGs will improve as steroid continues to taper. Will continue to provide correctional insulin with Novolog and will consider an additional dose of Lantus this evening, depending on evening BSG. * Patient is not likely to require Lantus once steroids are cut and stressors begins to resolve. Will also need to loosen Novolog parameters. Will continue to follow closely. * ADA & AACE recommend a goal blood sugar range 140-180 mg/dl for the majority of critically ill & non-critically ill patients. However, more stringent targets may be selected in individual cases. PLAN FOR INPATIENT GLYCEMIC CONTROL: * Basal insulin with LANTUS 15 units SQ x1 dose given at ~0400 this am. * Give additional 10 units tonight at midnight if BSG greater than 140mg/dL * Correctional Insulin with NOVOLOG per scale ACHS or Q6hrs while NPO * Goal Range: Low 140 mg/dL - High 180 mg/dL * Correction Factor: 15 mg/dL/unit * Nutritional / Prandial insulin: none * Please note that the plan above was derived based on current level of insulin resistance and hospital stress. These recommendations are appropriate for inpatient admission only. Plan of care upon discharge will need to be reassessed to avoid potential outpatient hypo/hyperglycemia. Thank you.
--- NOTE | 2017-01-03 16:06 | Progress Note ---
Subjective Date of Service: Jan 03, 2017. Objective Vital Signs Date Time Temp Pulse Resp B/P (MAP) Pulse Ox O2 Delivery O2 Flow Rate FiO2 01/03/17 15:00 80 17 114/60 98 01/03/17 14:00 82 17 115/59 98 01/03/17 13:52 60 01/03/17 13:00 81 17 93/55 (68) 01/03/17 13:00 81 17 93/55 92 01/03/17 12:00 98 Mechanical Ventilator 60 01/03/17 12:00 97 21 122/67 92 01/03/17 12:00 60 01/03/17 12:00 37.1 97 21 122/67 (85) 92 01/03/17 11:20 60 01/03/17 11:00 89 20 120/70 97 01/03/17 10:00 96 19 108/69 (82) 97 01/03/17 10:00 96 19 108/69 97 01/03/17 09:00 83 17 99 01/03/17 09:00 82 15 112/63 98 01/03/17 08:00 37.4 86 18 120/72 (88) 100 01/03/17 08:00 70 01/03/17 08:00 86 18 120/72 100 01/03/17 08:00 99 Mechanical Ventilator 70 01/03/17 07:04 70 01/03/17 07:00 37.4 85 16 104/67 99 01/03/17 06:01 101 18 144/98 99 01/03/17 05:26 80 01/03/17 05:01 92 15 135/74 100 01/03/17 05:00 138/70 (92) 01/03/17 04:30 132/71 (91) 01/03/17 04:01 92 16 130/75 100 01/03/17 04:00 147/64 (91) 01/03/17 04:00 80 01/03/17 04:00 99 Mechanical Ventilator 80 01/03/17 04:00 37.4 01/03/17 03:30 139/65 (89) 01/03/17 03:01 94 14 125/75 100 01/03/17 03:00 136/66 (89) 01/03/17 02:30 131/63 (85) 01/03/17 02:01 95 14 122/70 99 01/03/17 02:00 90 01/03/17 02:00 128/62 (84) 01/03/17 01:30 134/65 (88) 01/03/17 01:01 100 16 119/72 100 01/03/17 01:00 125/61 (82) 01/03/17 00:30 123/60 (81) 01/03/17 00:01 123/62 (82) 01/03/17 00:01 37.9 01/03/17 00:01 101 17 122/66 99 01/02/17 23:59 100 Mechanical Ventilator 100 01/02/17 23:59 100 01/02/17 23:30 120/60 (80) 01/02/17 23:02 100 01/02/17 23:01 102 18 100/59 99 01/02/17 23:00 105/55 (72) 01/02/17 22:30 121/59 (79) 01/02/17 22:15 103 15 112/60 100 01/02/17 22:01 102 15 112/60 100 01/02/17 22:00 117/58 (77) 01/02/17 21:30 102/51 (68) 01/02/17 21:01 97 14 109/58 100 01/02/17 21:00 111/54 (73) 01/02/17 20:30 106/52 (70) 01/02/17 20:01 102 16 101/51 98 01/02/17 20:00 37.7 103 16 89/44 100 Mechanical Ventilator 100 01/02/17 20:00 104/50 (68) 01/02/17 20:00 100 01/02/17 20:00 37.7 01/02/17 19:40 100 01/02/17 19:30 87/47 (60) 01/02/17 19:30 103 16 95 01/02/17 19:30 103 16 95 01/02/17 19:30 103 16 95 01/02/17 19:15 104 18 100 01/02/17 19:15 104 18 100 01/02/17 19:15 104 18 100 01/02/17 19:01 105 18 89/44 97 01/02/17 19:01 105 18 89/44 97 01/02/17 19:01 105 18 89/44 97 01/02/17 19:00 105 19 98 01/02/17 19:00 105 19 98 01/02/17 19:00 105 19 98 01/02/17 19:00 105 18 89/44 (59) 97 01/02/17 18:45 109 19 90 01/02/17 18:30 107 27 91 01/02/17 18:15 112 31 91 01/02/17 18:01 115 30 84/51 86 01/02/17 18:00 109 24 90 01/02/17 18:00 115 30 84/51 (62) 86 01/02/17 17:46 114 22 72/49 79 01/02/17 17:45 113 28 90 01/02/17 17:45 114 22 72/49 (57) 79 01/02/17 17:41 109 31 76/51 90 01/02/17 17:39 113 27 67/36 89 01/02/17 17:30 115 23 01/02/17 17:30 110 28 76/38 (51) 88 01/02/17 17:30 100 01/02/17 17:28 112 21 67/ 89 01/02/17 17:21 110 28 76/38 88 01/02/17 17:16 107 28 57/42 01/02/17 17:15 107 28 57/42 (47) 01/02/17 17:15 109 29 90 Laboratory Results Last 24 Hours Test 01/02/17 17:22 01/02/17 17:35 01/02/17 17:40 01/02/17 17:43 Bedside Hemoglobin 9.2 g/dl 9.5 g/dl Bedside Hematocrit 27 % 28 % Bedside Blood Gas pH (LAB) 7.15 7.19 Bedside Blood Gas pCO2 (LAB) 50 mmHg 47 mmHg Bedside Blood Gas pO2 (LAB) 38 mmHg 63 mmHg Bedside Blood Gas HCO3 (LAB) 18 meq/L 18 meq/L Bedside Blood Gas Total CO2 19 mEq/l 19 mEq/l Bedside Blood Gas Base Excess (LAB) -11.0 meq/L -10.0 meq/L Bedside Blood Gas O2 Saturation 57.0 % 86.0 % Bedside Sodium 137 mEq/L 139 mEq/L Bedside Potassium 4.6 mEq/L 4.7 mEq/L Blood Gas Sample Site R Radial Ar Test Pass Oxygen Delivery Device Ventilator Bedside Oxygen Rate (breaths/min) 18 Bedside FiO2 100 % Blood Gas Tidal Volume 550 Blood Gas PEEP 15 Bedside Lactic Acid Arterial 2.59 mmol/L Bedside Chloride 108 mEq/L Bedside Total CO2 20 mEq/l Anion Gap 17.0 mmol/L Bedside Blood Urea Nitrogen 54 mg/dl Bedside Creatinine 3.3 mg/dl Bedside Glucose (other) 189 mg/dl Bedside Ionized Calcium (Gavin) 1.09 mmol/l Test 01/02/17 18:11 01/02/17 19:51 01/02/17 19:58 01/02/17 21:34 White Blood Count 4.01 K/uL Red Blood Count 3.24 M/uL Hemoglobin 9.5 g/dL Hematocrit 29.2 % Mean Corpuscular Volume 90.1 fL Mean Corpuscular Hemoglobin 29.3 pg Mean Corpuscular Hemoglobin Concent 32.5 g/dl Platelet Count 257 K/uL Mean Platelet Volume 10.1 fL RDW Standard Deviation 51.7 fL RDW Coefficient of Variation 15.7 % Neutrophils % (Manual) 85.1 % Lymphocytes % (Manual) 12.3 % Monocytes % (Manual) 2.6 % Neutrophils # (Manual) 3.41 K/uL Total Absolute Neutrophils 3.41 K/uL Lymphocytes # (Manual) 0.49 K/uL Total Absolute Lymphocytes 0.49 K/uL Monocytes # (Manual) 0.10 K/uL Toxic Granulation 1+ Toxic Vacuolation 1+ Prothrombin Time 12.0 SECONDS Prothromb Time International Ratio 1.1 Activated Partial Thromboplast Time 32.4 SECONDS Partial Thromboplastin Ratio 1.2 Sodium Level 140 mmol/L Potassium Level 4.6 mmol/L Chloride Level 110 mmol/L Carbon Dioxide Level 19 mmol/L Anion Gap 11.0 mmol/L Blood Urea Nitrogen 54 mg/dl Creatinine 3.50 mg/dl Estimated GFR () 18.6 Estimated GFR (Non- 16.0 BUN/Creatinine Ratio 15.3 Random Glucose 177 mg/dl Calcium Level 6.9 mg/dl Phosphorus Level 3.9 mg/dl Magnesium Level 2.1 mg/dl Total Bilirubin 1.1 mg/dl Aspartate Amino Transf (AST/SGOT) 52 U/L Alanine Aminotransferase (ALT/SGPT) 34 U/L Alkaline Phosphatase 61 U/L Total Protein 5.9 gm/dl Albumin 2.2 gm/dl Globulin 3.7 gm/dl Albumin/Globulin Ratio 0.6 Blood Gas Sample Site Art Line Bedside Blood Gas pH (LAB) 7.24 Bedside Blood Gas pCO2 (LAB) 38 mmHg Bedside Blood Gas pO2 (LAB) 73 mmHg Bedside Blood Gas HCO3 (LAB) 16 meq/L Bedside Blood Gas Total CO2 18 mEq/l Bedside Blood Gas Base Excess (LAB) -11.0 meq/L Bedside Blood Gas O2 Saturation 92.0 % Ar Test NA Oxygen Delivery Device Ventilator Bedside Oxygen Rate (breaths/min) 18 Blood Gas Minute Ventilation 13.2 Bedside FiO2 100 % Blood Gas Tidal Volume 550 Blood Gas PEEP 15 Bedside Lactic Acid Arterial 1.73 mmol/L Urine Color YELLOW Urine Appearance CLOUDY Urine pH 5.0 Urine Specific [place] 1.019 Urine Protein TRACE Urine Glucose (UA) NEG Urine Ketones NEG Urine Occult Blood 3+ Urine Nitrite NEG Urine Bilirubin NEG Urine Urobilinogen NEG Urine Leukocyte Esterase NEG Urine WBC (Auto) 1-5 /hpf Urine RBC (Auto) 0-4 /hpf Urine Hyaline Casts (Auto) 5-10 /lpf Urine Epithelial Cells (Auto) 10-20 /lpf Urine Bacteria (Auto) NEG Urine Crystals AMORPHOUS SEDIMENT Urine Yeast (Auto) Test 01/02/17 22:45 01/02/17 23:07 01/03/17 03:39 01/03/17 05:04 Total Creatine Kinase 1217 U/L 1418 U/L Creatine Kinase MB 6.7 ng/ml 7.8 ng/ml Creatine Kinase MB Ratio 0.6 0.6 Troponin I 0.172 ng/ml 0.150 ng/ml Bedside Glucose (other) 271 mg/dl 271 mg/dl White Blood Count 10.26 K/uL Red Blood Count 3.10 M/uL Hemoglobin 9.1 g/dL Hematocrit 27.2 % Mean Corpuscular Volume 87.7 fL Mean Corpuscular Hemoglobin 29.4 pg Mean Corpuscular Hemoglobin Concent 33.5 g/dl Platelet Count 195 K/uL Mean Platelet Volume 9.5 fL RDW Standard Deviation 49.7 fL RDW Coefficient of Variation 15.4 % Neutrophils % (Manual) 79.2 % Lymphocytes % (Manual) 2.6 % Monocytes % (Manual) 7.8 % Metamyelocytes % 10.4 % Neutrophils # (Manual) 8.13 K/uL Total Absolute Neutrophils 8.13 K/uL Lymphocytes # (Manual) 0.27 K/uL Total Absolute Lymphocytes 0.27 K/uL Monocytes # (Manual) 0.80 K/uL Metamyelocytes # 1.07 K/uL Toxic Granulation 2+ Toxic Vacuolation 1+ Dohle Bodies 2+ Echinocytes 1+ Sodium Level 137 mmol/L Potassium Level 4.5 mmol/L Chloride Level 106 mmol/L Carbon Dioxide Level 20 mmol/L Anion Gap 11.0 mmol/L Blood Urea Nitrogen 46 mg/dl Creatinine 2.70 mg/dl Est Creatinine Clear Calc Drug Dose 26.6 ml/min Estimated GFR () 25.4 Estimated GFR (Non- 21.9 BUN/Creatinine Ratio 17.2 Random Glucose 259 mg/dl Lactic Acid Level 2.4 mmol/L Calcium Level 6.9 mg/dl Phosphorus Level 2.9 mg/dl Magnesium Level 1.8 mg/dl Total Bilirubin 0.9 mg/dl Direct Bilirubin 0.5 mg/dl Aspartate Amino Transf (AST/SGOT) 50 U/L Alanine Aminotransferase (ALT/SGPT) 32 U/L Alkaline Phosphatase 50 U/L Total Protein 6.5 gm/dl Albumin 2.7 gm/dl Test 01/03/17 05:46 01/03/17 08:02 01/03/17 12:12 Bedside Glucose (other) 251 mg/dl Blood Gas Sample Site Art Line Bedside Blood Gas pH (LAB) 7.32 Bedside Blood Gas pCO2 (LAB) 35 mmHg Bedside Blood Gas pO2 (LAB) 118 mmHg Bedside Blood Gas HCO3 (LAB) 18 meq/L Bedside Blood Gas Total CO2 19 mEq/l Bedside Blood Gas Base Excess (LAB) -8.0 meq/L Bedside Blood Gas O2 Saturation 98.0 % Ar Test NA Oxygen Delivery Device Ventilator Bedside Oxygen Rate (breaths/min) 2 Blood Gas Minute Ventilation 13.1 Bedside FiO2 70 % Blood Gas Tidal Volume 550 Blood Gas PEEP 15 Bedside Glucose 179 mg/dl Assessment and Plan 76 y/o M Hx COPD, CAD, carotid stenosis, PVD, obesity. Found unresponsive at home for unknown amt of time after likely aspiration on ice cream. Pt initially brought to [facility] but then transferred to [facility] due to acuity of patient. Acute hypoxic resp failure sec to aspiration. CXR revealed B/L infiltrates consistent with PNM and possible aspiration. Cont IV antibx of zosyn and levaquin. Stat ECHO reviewed, EF 55-60%, no WMA Septic shock likely related to above, cont pressor support. Appreciate 911 telecommunicator recs, will cont to wean pressors at this time CAD - should remain on ASA, Statin - would not tolerate B edilia presently, trops elev likely from septic state COPD - Placed on scheduled nebs and cont steroids ARF - improving, likely acute on chronic - aggressive IVF - trend BMP
[2017-01-03] MEDS: FENTANYL 1250MCG/250ML NSS 250 ML IV PRN (17:51)
[2017-01-03] MEDS ORDERED: HYDROCORTISONE IV 75 MG in SYRINGE 0 ML IV SCH (18:00)
[2017-01-03] MEDS: HYDROCORTISONE IV 50 MG in SYRINGE 0 ML IV SCH (18:00)
[2017-01-03] MEDS ORDERED: NURSING VERBAL MED ORDER ONE (19:30)
[2017-01-03] MEDS: VASOPRESSIN INJ 50 UNITS in SODIUM CHLORIDE 0.9% 500ML 500 ML IV PRN (19:40)
[2017-01-03] MEDS: PROPOFOL IV SCH (20:05)
[2017-01-03] MEDS ORDERED: INSULIN GLARGINE SOLOSTAR 100 UNITS/ML 3 ML PEN SC SCH (21:00)
[2017-01-04] VITALS (32 sets, daily range): BP systolic 88–142; BP diastolic 51–79; PULSE 58–102; TEMP 36.9–37; O2SAT 89–100
[2017-01-04] MEDS ORDERED: INSULIN GLARGINE SOLOSTAR 100 UNITS/ML 3 ML PEN SC SCH
[2017-01-04] MEDS: HYDROCORTISONE IV 50 MG in SYRINGE 0 ML IV SCH ×2 (01:25→08:39)
[2017-01-04] MEDS: IPRATROPIUM BROMIDE HFA INHALER INH SCH ×4 (03:28→20:14)
[2017-01-04] MEDS: ALBUTEROL HFA 8 GM INHALER INH SCH ×4 (03:28→20:14)
[2017-01-04] MEDS: PIPERACILL/TAZOBAC IV 3.375 GM in DEXTROSE 5% 100ML IV SCH ×2 (03:45→16:20)
[2017-01-04] MEDS: PROPOFOL IV SCH (05:02)
[2017-01-04] MEDS: HEPARIN SOD 5000 UNIT/0.5 ML CARP SQ SCH ×3 (05:23→20:50)
[2017-01-04] MEDS: INSULIN ASPART 100 UNITS/ML 3 ML PEN SC SCH ×4 (05:24→16:20)
[2017-01-04 06:26] LABS: HEMATOCRIT 23.9 % (42-52); MEAN CELL VOLUME 87.9 fL (80-100); MEAN CORPUSCULAR HEMOGLOBIN 29.4 pg (25-34); MEAN CORPUSCULAR HGB CONC 33.5 g/dl (32-36); MEAN PLATELET VOLUME 9.9 fL (7.4-10.4); PLATELET COUNT 162 K/uL (130-400); RED BLOOD COUNT 2.72 M/uL (4.7-6.1); WHITE BLOOD COUNT 14.38 K/uL (4.8-10.8)
[2017-01-04 07:00] LABS: BUN/CREATININE RATIO 21.1 (10-20); CALCIUM 7.5 mg/dl (8.5-10.1); CREATININE 2.1 mg/dl (0.60-1.40); MAGNESIUM 2.4 mg/dl (1.8-2.4); POTASSIUM 4.1 mmol/L (3.5-5.1)
[2017-01-04 07:08] LABS: COMPLETE YES; DOHLE BODIES 2+; ECHINOCYTES 1+; IG% 1.3 %; LYMPH % 2.1 %; MONO % 5.8 %; NEUT % 90.8 %; TOXIC GRANULATION 2+
--- NOTE | 2017-01-04 07:23 | DIAGNOSTIC IMAGING REPORT ---
CHEST ONE VIEW PORTABLE CLINICAL HISTORY: aspiration PNA, F/U, reps failure dyspnea COMPARISON STUDY: 01/03/2017 FINDINGS: Endotracheal tube has been advanced somewhat. It is 2 cm both sidra. Bilateral parenchymal infiltrative change is somewhat improved. IMPRESSION: Improving bilateral parenchymal infiltrative change. Endotracheal tube 2 cm above the sidra. Electronically signed by: Omar Hu M.D. 01/04/2017 7:22 AM Dictated Date/Time: 01/04/2017 7:21 AM
[2017-01-04 07:34] LABS: ESTIMATED AVERAGE GLUCOSE 134 mg/dl; HA1C FLAG Normal (Normal)
[2017-01-04] MEDS: PANTOprazole INJ 40 MG in SYRINGE 0 ML IV SCH (08:39)
[2017-01-04] MEDS: CHLORHEXIDINE GLUCONATE 0.12% 480 ML MT SCH (08:40)
[2017-01-04] MEDS: INSULIN GLARGINE SOLOSTAR 100 UNITS/ML 3 ML PEN SC SCH ×2 (08:41→20:43)
[2017-01-04] MEDS ORDERED: DOCUSATE SODIUM 100 MG/10 ML UDC PO ONE (10:30)
--- NOTE | 2017-01-04 11:09 | CRITICAL CARE PROGRESS NOTE ---
DATE: 01/04/2017 DATE: 01/04/2017. HISTORY OF PRESENT ILLNESS: This is ICU day 3 for Mr. Michel, a 76-year-old gentleman who was transferred from [facility] where he presented after aspirating ice cream. He was intubated in the Emergency Department and transferred to [facility]. He was persistently hypotensive and by the time he got to our ICU was on multiple vasopressor. He has done well over the past few days. There were no acute events overnight. His care was discussed in detail with his RN Ko. He is still having some thick brown secretions; however, his PEEP was decreased from 15 to 8 over the past 24 hours. He has not had a bowel movement yet. He remains on Levophed. Vasopressin was weaned off last night. PHYSICAL EXAMINATION: VITAL SIGNS: Maximum temperature 36.9, heart rate 60s, respiratory rate 17, blood pressure 100-142/60s-70s, oxygen saturation 99%. 24-hour fluid balance positive 1.4 liters. VENTILATOR SETTINGS: Assist control, tidal volume 550, rate 18, FiO2 50%, and PEEP 8. NEUROLOGIC: He will awaken and follow commands, moving all 4 extremities. His CAM assessment is positive. LUNGS: Have decreased breath sounds throughout. No rhonchi or wheezes. HEART: Regular rate and rhythm. ABDOMEN: Mildly distended but soft, nontender. Active bowel sounds. EXTREMITIES: Warm. No edema. LABORATORY DATA: White blood cell count 14.38, hemoglobin 8, hematocrit 23.9, platelets 162. Sodium 139, potassium 4.1, chloride 108, CO2 21, BUN 44, creatinine 2.1, blood sugar 140. LFTs noted. Albumin 2.5. Hemoglobin A1c 6.3. Sputum culture is showing moderate staph species. Sensitivities to follow. MEDICATIONS: Tylenol, albuterol, chlorhexidine, fentanyl infusion 50 mcg per hour, hydrocortisone, insulin sliding scale, Lantus, Atrovent, Levaquin day 3, norepinephrine, Zofran, Protonix, Zosyn day 3, MiraLax, propofol. IMAGING: Portable chest x-ray from today was reviewed and shows improving bilateral parenchymal infiltrative change. Endotracheal tube 2 cm above the sidra. IMPRESSIONS: 1. Acute hypoxemic respiratory failure secondary to aspiration pneumonitis, initially with acute respiratory distress syndrome and with improving oxygenation in the past 24 hours. 2. Aspiration pneumonitis versus aspiration pneumonia. He is on empiric Zosyn and levaquin. 3. Shock secondary to sepsis and hypovolemia, improved. 4. Acute kidney injury. Continues to improve. 5. Staph species in the sputum. 6. Anemia, no signs of acute blood loss. 7. Abdominal aortic aneurysm. 8. History of cerebrovascular accident. 9. History of coronary artery disease. PLAN: NEUROLOGIC: Sedation vacation. Treat pain before agitation. PULMONARY: PEEP has been decreased to 5 and we are planning on a weaning trial today. Continue bronchodilators. I am weaning his steroids which were started for refractory shock. CARDIOVASCULAR: I anticipate the Levophed being weaned off today. I will review his outpatient medications and likely add back his carvedilol today. GASTROINTESTINAL: If he is not extubated today. Begin trickle feeds. Continue IV Protonix for GI prophylaxis. RENAL: No new issues. I think he may have had ATN secondary to hypovolemia. He is responding well. He is not on IV fluids. INFECTIOUS DISEASE: Await sensitivities on the staph in the sputum. Continue Zosyn and Levaquin. HEMATOLOGY: Subcutaneous heparin and SCDs. H&H this afternoon. ENDOCRINE: Continue weaning hydrocortisone. Lines: L femoral a line and TLC. Overall, he continues to improve. His family has not been to the hospital to visit yet, but they do call in to speak to the nurse frequently. Critical care time 60 minutes. MTDD
[2017-01-04] MEDS ORDERED: CARVEDILOL 3.125 MG TAB PO ONE (12:30)
[2017-01-04] MEDS ORDERED: CLOPIDOGREL BISULFATE 75 MG TAB PO ONE (12:30)
[2017-01-04] MEDS ORDERED: VENLAFAXINE HCL 50 MG TAB PO ONE (12:33)
[2017-01-04] MEDS ORDERED: METOPROLOL TARTRATE 1 MG/ML VIAL ONE (14:17)
[2017-01-04] MEDS ORDERED: NURSING VERBAL MED ORDER ONE (14:30)
[2017-01-04] MEDS ORDERED: PEPTAMEN INTENSE VHP 1000ML BAG NG SCH (15:30)
--- NOTE | 2017-01-04 15:41 | Progress Note ---
Subjective Date of Service: Jan 04, 2017. Subjective Pt evaluation today including: conversation w/ patient, physical exam, chart review, lab review, review of studies, conversation w/ independent beauty consultant, review of inpatient medication list Pt currently intubated Seems to be in mild distress liekly from pain No family visited yet Review of Systems Unable to obtain due to intubated state Objective Vital Signs Date Time Temp Pulse Resp B/P (MAP) Pulse Ox O2 Delivery O2 Flow Rate FiO2 01/04/17 15:07 40 01/04/17 14:35 140 131/78 01/04/17 14:00 85 14 131/78 (95) 89 CPAP 40 Mechanical Ventilator 01/04/17 12:55 40 01/04/17 12:00 CPAP 40 Mechanical Ventilator 01/04/17 12:00 36.9 86 16 113/62 (79) 91 CPAP 40 Mechanical Ventilator 01/04/17 12:00 40 01/04/17 10:03 40 01/04/17 10:00 36.9 77 14 119/67 (84) 93 CPAP 40 Mechanical Ventilator 01/04/17 09:39 40 01/04/17 08:00 36.9 62 20 118/69 (85) 98 Mechanical Ventilator 60 01/04/17 08:00 Mechanical Ventilator 60 01/04/17 08:00 60 01/04/17 07:58 50 01/04/17 06:01 64 17 116/68 (84) 99 01/04/17 06:00 64 17 99 01/04/17 05:26 50 01/04/17 05:01 66 17 100/62 (75) 01/04/17 05:00 67 17 98 01/04/17 04:13 60 01/04/17 04:13 100 Mechanical Ventilator 60 01/04/17 04:01 68 17 142/79 (100) 97 01/04/17 04:00 36.9 69 20 98 01/04/17 03:28 50 01/04/17 03:01 69 16 140/78 (98) 98 01/04/17 03:00 69 16 99 01/04/17 02:01 70 16 133/73 (93) 97 01/04/17 02:00 71 16 98 01/04/17 01:10 76 20 129/72 (91) 95 01/04/17 01:00 102 20 97 01/04/17 00:01 73 17 120/63 (82) 97 130/61 (84) 01/04/17 00:00 60 01/04/17 00:00 100 Mechanical Ventilator 60 01/04/17 00:00 36.9 73 17 99 01/03/17 23:17 60 01/03/17 23:01 69 16 115/64 (81) 98 01/03/17 23:00 69 17 99 01/03/17 22:01 74 16 121/68 (85) 98 01/03/17 22:00 67 16 99 01/03/17 21:01 65 17 123/68 (86) 99 01/03/17 21:00 71 17 100 01/03/17 20:01 36.9 70 16 121/57 (78) 99 01/03/17 20:00 100 Mechanical Ventilator 60 01/03/17 20:00 68 16 100 01/03/17 20:00 60 01/03/17 19:01 74 17 124/61 (82) 98 01/03/17 19:00 68 16 99 01/03/17 18:50 60 01/03/17 18:00 72 15 114/57 (76) 95 01/03/17 18:00 72 15 114/57 95 01/03/17 17:13 60 01/03/17 17:00 69 19 118/58 97 01/03/17 16:00 51 17 114/43 97 01/03/17 16:00 60 01/03/17 16:00 99 Mechanical Ventilator 60 01/03/17 16:00 37.1 51 17 114/43 (66) 97 Physical Exam General Appearance: WD/WN, + mild distress Neck: supple, no adenopathy Respiratory/Chest: chest non-tender, + respiratory distress, + decreased breath sounds, + wheezing Cardiovascular: no edema, no gallop, no JVD, no murmur Abdomen: normal bowel sounds, non tender, soft, no organomegaly Extremities: normal range of motion, non-tender, normal inspection, + pedal edema Neurologic/Psychiatric: no motor/sensory deficits, alert, normal mood/affect Skin: normal color, warm/dry, no rash Lymphatic: no adenopathy Laboratory Results Last 24 Hours Test 01/03/17 18:06 01/04/17 00:32 01/04/17 05:25 01/04/17 06:08 Bedside Glucose 178 mg/dl Bedside Glucose (other) 181 mg/dl 147 mg/dl White Blood Count 14.38 K/uL Red Blood Count 2.72 M/uL Hemoglobin 8.0 g/dL Hematocrit 23.9 % Mean Corpuscular Volume 87.9 fL Mean Corpuscular Hemoglobin 29.4 pg Mean Corpuscular Hemoglobin Concent 33.5 g/dl Platelet Count 162 K/uL Mean Platelet Volume 9.9 fL Neutrophils (%) (Auto) 90.8 % Lymphocytes (%) (Auto) 2.1 % Monocytes (%) (Auto) 5.8 % Eosinophils (%) (Auto) 0.0 % Basophils (%) (Auto) 0.0 % Neutrophils # (Auto) 13.07 K/uL Lymphocytes # (Auto) 0.30 K/uL Monocytes # (Auto) 0.83 K/uL Eosinophils # (Auto) 0.00 K/uL Basophils # (Auto) 0.00 K/uL RDW Standard Deviation 50.7 fL RDW Coefficient of Variation 15.6 % Immature Granulocyte % (Auto) 1.3 % Immature Granulocyte # (Auto) 0.18 K/uL Toxic Granulation 2+ Dohle Bodies 2+ Echinocytes 1+ Sodium Level 139 mmol/L Potassium Level 4.1 mmol/L Chloride Level 108 mmol/L Carbon Dioxide Level 21 mmol/L Anion Gap 10.0 mmol/L Blood Urea Nitrogen 44 mg/dl Creatinine 2.10 mg/dl Est Creatinine Clear Calc Drug Dose 34.2 ml/min Estimated GFR () 34.4 Estimated GFR (Non- 29.7 BUN/Creatinine Ratio 21.1 Random Glucose 140 mg/dl Estimated Average Glucose 134 mg/dl Hemoglobin A1c 6.3 % Lactic Acid Level 1.0 mmol/L Calcium Level 7.5 mg/dl Phosphorus Level 4.0 mg/dl Magnesium Level 2.4 mg/dl Total Bilirubin 0.7 mg/dl Direct Bilirubin 0.3 mg/dl Aspartate Amino Transf (AST/SGOT) 40 U/L Alanine Aminotransferase (ALT/SGPT) 28 U/L Alkaline Phosphatase 50 U/L Total Protein 6.5 gm/dl Albumin 2.5 gm/dl Test 01/04/17 12:06 Bedside Glucose 116 mg/dl Assessment and Plan 76 y/o M Hx COPD, CAD, carotid stenosis, PVD, obesity. Found unresponsive at home for unknown amt of time after likely aspiration on ice cream. Pt initially brought to [facility] but then transferred to [facility] due to acuity of patient. Acute hypoxic resp failure sec to aspiration. Improving CXR revealed B/L infiltrates consistent with PNM and possible aspiration. Cont IV antibx of zosyn and levaquin day # 2. Stat ECHO reviewed, EF 55-60%, no WMA Cont to wean off levophed Possible sedation vacation and weaning trial today Septic shock likely related to above, improving cont to wean off pressors and steroids. Appreciate clipper and turner recs. CAD - should remain on ASA, Statin, will restart on BB as well, trops elev likely from septic state COPD - Placed on scheduled nebs and cont steroids ARF - improving, likely acute on chronic - aggressive IVF - trend BMP
[2017-01-04] MEDS: HYDROCORTISONE IV 25 MG in SYRINGE 0 ML IV SCH (16:20)
[2017-01-04] MEDS: DOCUSATE SODIUM 100 MG/10 ML UDC PO SCH (20:15)
[2017-01-04] MEDS: LEVOFLOXACIN / D5W 250 MG in PREMIXED IN D5W 50 ML IV SCH (20:15)
[2017-01-04] MEDS: VENLAFAXINE HCL 50 MG TAB PO SCH (20:16)
[2017-01-04] MEDS: CARVEDILOL 3.125 MG TAB PO SCH (20:16)
[2017-01-04] MEDS: SODIUM CHLORIDE 0.45% 1000ML 1,000 ML IV SCH (20:31)
[2017-01-04 21:23] LABS: HEMATOCRIT 24.2 % (42-52)
[2017-01-05] VITALS (26 sets, daily range): BP systolic 120–142; BP diastolic 56–75; PULSE 62–81; TEMP 36.8–37.2; O2SAT 90–95
[2017-01-05] MEDS: PIPERACILL/TAZOBAC IV 3.375 GM in DEXTROSE 5% 100ML IV SCH ×3 (00:02→16:29)
[2017-01-05] MEDS: HYDROCORTISONE IV 25 MG in SYRINGE 0 ML IV SCH ×2 (01:19→08:18)
[2017-01-05] MEDS: INSULIN ASPART 100 UNITS/ML 3 ML PEN SC SCH ×3 (05:22→11:55)
[2017-01-05] MEDS: HEPARIN SOD 5000 UNIT/0.5 ML CARP SQ SCH ×3 (05:24→20:56)
[2017-01-05 05:37] LABS: HEMATOCRIT 24.1 % (42-52); MEAN CELL VOLUME 87.3 fL (80-100); MEAN CORPUSCULAR HEMOGLOBIN 29.3 pg (25-34); MEAN CORPUSCULAR HGB CONC 33.6 g/dl (32-36); MEAN PLATELET VOLUME 9.8 fL (7.4-10.4); PLATELET COUNT 160 K/uL (130-400); RED BLOOD COUNT 2.76 M/uL (4.7-6.1); WHITE BLOOD COUNT 14.31 K/uL (4.8-10.8)
[2017-01-05 06:02] LABS: BASO % 0.1 %; BASO ABS # 0.01 K/uL (0-0.2); COMPLETE YES; EOS % 0.1 %; IG% 0.3 %; LYMPH % 3.4 %; LYMPH ABS # 0.49 K/uL (1.2-3.4); MONO % 4.1 %; TOXIC GRANULATION 2+
[2017-01-05 06:08] LABS: BUN/CREATININE RATIO 26.2 (10-20); CALCIUM 7.7 mg/dl (8.5-10.1); CREATININE 1.6 mg/dl (0.60-1.40); MAGNESIUM 2.2 mg/dl (1.8-2.4); POTASSIUM 3.5 mmol/L (3.5-5.1)
[2017-01-05 06:17] LABS: PHOSPHORUS 2.3 mg/dl (2.5-4.9)
[2017-01-05] MEDS: ALBUT/IPRATROP 3MG/0.5MG NEB 3 ML VIAL INH SCH ×3 (07:38→19:02)
[2017-01-05] MEDS: CLOPIDOGREL BISULFATE 75 MG TAB PO SCH (08:17)
[2017-01-05] MEDS: ATORVASTATIN 20 MG TAB PO SCH (08:17)
[2017-01-05] MEDS: PANTOprazole INJ 40 MG in SYRINGE 0 ML IV SCH (08:18)
[2017-01-05] MEDS: DOCUSATE SODIUM 100 MG/10 ML UDC PO SCH ×3 (08:18→21:00)
[2017-01-05] MEDS: VENLAFAXINE HCL 50 MG TAB PO SCH ×2 (08:18→20:54)
[2017-01-05] MEDS: CARVEDILOL 3.125 MG TAB PO SCH ×2 (08:18→20:55)
[2017-01-05] MEDS: POLYETHYLENE (MIRALAX) 17 GM PACK PO SCH (08:18)
[2017-01-05] MEDS: SODIUM CHLORIDE 0.45% 1000ML 1,000 ML IV SCH (08:19)
[2017-01-05] MEDS ORDERED: POTASSIUM CHLR 20 MEQ / WTR 20 MEQ in PREMIXED WATER 100 ML IV SCH (10:15)
[2017-01-05] MEDS ORDERED: NURSING VERBAL MED ORDER ONE ×5 (10:30→17:15)
[2017-01-05] MEDS ORDERED: POTASSIUM CHLR 10MEQ / WTR IV SCH (11:30)
--- NOTE | 2017-01-05 12:31 | Pharmacy Progress Note ---
Glycemic Control: Progress Nt Date of Service Jan 05, 2017. Scope Glycemic Pharmacist consulted by for glycemic control and to write orders per [facility] inpatient glycemic control protocol. Objective Accuchecks BSG (last 24hrs): Test 01/04/17 16:16 01/04/17 20:42 01/04/17 23:39 01/05/17 05:01 Bedside Glucose 100 mg/dl (70-99) 91 mg/dl (70-99) 95 mg/dl (70-99) Random Glucose 86 mg/dl (70-99) Test 01/05/17 05:09 01/05/17 11:54 Bedside Glucose 96 mg/dl (70-99) 118 mg/dl (70-99) Laboratory Data (last 24hrs) Test 01/05/17 05:01 Anion Gap 12.0 mmol/L BUN/Creatinine Ratio 26.2 Blood Urea Nitrogen 42 mg/dl Creatinine 1.60 mg/dl Potassium Level 3.5 mmol/L Sodium Level 144 mmol/L White Blood Count 14.31 K/uL Red Blood Count 2.76 M/uL Hemoglobin 8.1 g/dL Hematocrit 24.1 % Mean Corpuscular Volume 87.3 fL Mean Corpuscular Hemoglobin 29.3 pg Mean Corpuscular Hemoglobin Concent 33.6 g/dl Platelet Count 160 K/uL Mean Platelet Volume 9.8 fL Neutrophils (%) (Auto) 92.0 % Lymphocytes (%) (Auto) 3.4 % Monocytes (%) (Auto) 4.1 % Eosinophils (%) (Auto) 0.1 % Basophils (%) (Auto) 0.1 % Neutrophils # (Auto) 13.17 K/uL Lymphocytes # (Auto) 0.49 K/uL Monocytes # (Auto) 0.59 K/uL Eosinophils # (Auto) 0.01 K/uL Basophils # (Auto) 0.01 K/uL HbA1c: Test 01/04/17 06:08 Hemoglobin A1c 6.3 % (4.5-5.6) H Recent Pertinent Medications Outpatient Anti-diabetic Regimen: * n/a * A1c = 6.3 % from 01/04/17 Risk Factors for Insulin Resistance: * Steroids: HC 25mg IV [id number] * Infection: PNA - Zosyn IV * IVF: 1/2 NS at 100 ml/hr * Diet: NPO Assessment & Plan ASSESSMENT: * ADA & AACE recommend a goal blood sugar range 140-180 mg/dl for the majority of critically ill & non-critically ill patients. However, more stringent targets may be selected in individual cases. 01/04/17: * Patient is a 76yo non-diabetic male, currently with significant stress-induced /steroid-induced hyperglycemia. * Lantus 15 units x1 dose given early this morning, with some resolution in BSG (271 --> 179). * Steroids are tapering this evening from Hydrocortisone 100mg IV q8h --> 50mg IV q8h. * Expect that BSGs will improve as steroid continues to taper. Will continue to provide correctional insulin with Novolog and will consider an additional dose of Lantus this evening, depending on evening BSG. * Patient is not likely to require Lantus once steroids are cut and stressors begins to resolve. Will also need to loosen Novolog parameters. Will continue to follow closely. 01/05/17 * BSG control has improved with the tapering of steroids. * BSG ranging 86 - 118 mg/dl during the past 24 hours. FBG this morning was 96 mg/dl. * Pt received Lantus 10 units yesterday, no Novolog given yesterday. * Will discontinue Lantus today. Basal insulin does not seem necessary now that the steroid effect has lessened. * Will also loosen the Novolog CF. No CR (as per current order). PLAN FOR INPATIENT GLYCEMIC CONTROL: * Discontinue Lantus. * Novolog ACHS * Loosen correction factor to 30 mg/dl/unit * No CR * Continue goal range Low 140 mg/dL - High 180 mg/dL * Please note that the plan above was derived based on current level of insulin resistance and hospital stress. These recommendations are appropriate for inpatient admission only. Plan of care upon discharge will need to be reassessed to avoid potential outpatient hypo/hyperglycemia. Thank you.
[2017-01-05] MEDS ORDERED: POTASSIUM CHLORIDE 20 MEQ TABCR PO ONE (13:15)
--- NOTE | 2017-01-05 13:21 | Progress Note ---
Subjective Date of Service: Jan 05, 2017. Subjective Pt evaluation today including: conversation w/ patient, physical exam, chart review, lab review, review of studies, review of inpatient medication list Pt extubated Resting comfortably in bed Off pressors Productive cough No fevers Passed swallowing eval Review of Systems Constitutional: No fever, No chills, No sweats, No weight loss, No weakness ENT: No hearing loss, No unusual epistaxis, No nasal symptoms, No sore throat Respiratory: + cough, + sputum, No wheezing, No shortness of breath, No dyspnea on exertion Cardiac: No chest pain, No orthopnea, No PND, No edema Abdomen: No pain, No nausea, No vomiting, No diarrhea, No constipation Musculoskeletal: No joint pain, No muscle pain Male : No dysuria, No urinary frequency, No incontinence Neurologic: No memory loss, No paralysis, No weakness, No numbness/tingling Psychiatric: No depression symptoms, No anhedonism, No anxiety, No insomnia Endo: No fatigue, No excessive thirst Skin: No rash, No itch Objective Vital Signs Date Time Temp Pulse Resp B/P (MAP) Pulse Ox O2 Delivery O2 Flow Rate FiO2 01/05/17 12:00 Nasal Cannula 6.0 01/05/17 12:00 77 18 94 Nasal Cannula 6.0 01/05/17 10:01 72 20 93 Nasal Cannula 6.0 01/05/17 08:00 Nasal Cannula 6.0 01/05/17 08:00 73 18 141/75 (97) 92 Nasal Cannula 6.0 01/05/17 07:38 76 18 94 Nasal Cannula 6.0 01/05/17 06:01 66 20 138/70 (92) 91 01/05/17 06:00 63 17 91 01/05/17 05:01 73 15 120/75 (90) 91 01/05/17 05:00 74 20 92 01/05/17 04:08 91 Nasal Cannula 6.0 01/05/17 04:02 37.0 67 17 135/67 (89) 92 01/05/17 04:00 68 19 90 01/05/17 03:01 62 16 135/65 (88) 90 01/05/17 03:00 67 19 92 01/05/17 02:00 62 15 90 01/05/17 01:02 71 23 121/56 (77) 90 01/05/17 01:00 62 20 90 01/05/17 00:05 91 Nasal Cannula 6.0 01/05/17 00:01 37.0 63 17 121/71 (88) 94 01/05/17 00:00 63 19 93 01/04/17 23:01 58 13 113/64 (80) 92 01/04/17 23:00 62 16 93 01/04/17 22:07 63 19 88/61 (70) 91 01/04/17 22:00 37.0 71 17 90 01/04/17 21:01 69 12 124/60 (81) 01/04/17 21:00 70 14 01/04/17 20:01 67 12 117/57 (77) 93 01/04/17 20:00 37.0 72 11 93 01/04/17 20:00 91 Nasal Cannula 6.0 01/04/17 19:51 66 15 102/58 (73) 92 01/04/17 19:01 67 18 102/58 (73) 89 01/04/17 19:00 64 15 91 01/04/17 18:25 66 12 107/69 (82) 89 Nasal Cannula 4.0 01/04/17 16:00 Nasal Cannula 4.0 01/04/17 16:00 81 20 102/51 (68) 89 Nasal Cannula 4.0 01/04/17 15:07 40 01/04/17 14:35 140 131/78 01/04/17 14:00 85 14 131/78 (95) 89 CPAP 40 Mechanical Ventilator Physical Exam General Appearance: WD/WN, no apparent distress Eyes: normal inspection, PERRL, EOMI, sclerae normal ENT: normal ENT inspection, hearing grossly normal, TMs normal, pharynx normal Neck: supple, no adenopathy, thyroid normal Respiratory/Chest: chest non-tender, no respiratory distress, + decreased breath sounds, + rhonchi Cardiovascular: regular rate, rhythm, no edema, no gallop, no JVD Abdomen: normal bowel sounds, non tender, soft, no organomegaly Neurologic/Psychiatric: no motor/sensory deficits, alert, normal mood/affect, oriented x 3 Laboratory Results Last 24 Hours Test 01/04/17 16:16 01/04/17 20:42 01/04/17 20:57 01/04/17 23:39 Bedside Glucose 100 mg/dl 91 mg/dl 95 mg/dl Hemoglobin 8.1 g/dL Hematocrit 24.2 % Test 01/05/17 05:01 01/05/17 05:09 01/05/17 11:54 White Blood Count 14.31 K/uL Red Blood Count 2.76 M/uL Hemoglobin 8.1 g/dL Hematocrit 24.1 % Mean Corpuscular Volume 87.3 fL Mean Corpuscular Hemoglobin 29.3 pg Mean Corpuscular Hemoglobin Concent 33.6 g/dl Platelet Count 160 K/uL Mean Platelet Volume 9.8 fL Neutrophils (%) (Auto) 92.0 % Lymphocytes (%) (Auto) 3.4 % Monocytes (%) (Auto) 4.1 % Eosinophils (%) (Auto) 0.1 % Basophils (%) (Auto) 0.1 % Neutrophils # (Auto) 13.17 K/uL Lymphocytes # (Auto) 0.49 K/uL Monocytes # (Auto) 0.59 K/uL Eosinophils # (Auto) 0.01 K/uL Basophils # (Auto) 0.01 K/uL RDW Standard Deviation 49.5 fL RDW Coefficient of Variation 15.3 % Immature Granulocyte % (Auto) 0.3 % Immature Granulocyte # (Auto) 0.04 K/uL Toxic Granulation 2+ Sodium Level 144 mmol/L Potassium Level 3.5 mmol/L Chloride Level 110 mmol/L Carbon Dioxide Level 22 mmol/L Anion Gap 12.0 mmol/L Blood Urea Nitrogen 42 mg/dl Creatinine 1.60 mg/dl Est Creatinine Clear Calc Drug Dose 44.4 ml/min Estimated GFR () 47.8 Estimated GFR (Non- 41.2 BUN/Creatinine Ratio 26.2 Random Glucose 86 mg/dl Calcium Level 7.7 mg/dl Phosphorus Level 2.3 mg/dl Magnesium Level 2.2 mg/dl Total Bilirubin 0.6 mg/dl Direct Bilirubin 0.3 mg/dl Aspartate Amino Transf (AST/SGOT) 35 U/L Alanine Aminotransferase (ALT/SGPT) 26 U/L Alkaline Phosphatase 57 U/L Total Protein 6.4 gm/dl Albumin 2.3 gm/dl Bedside Glucose 96 mg/dl 118 mg/dl Assessment and Plan 76 y/o M Hx COPD, CAD, carotid stenosis, PVD, obesity. Found unresponsive at home for unknown amt of time after likely aspiration on ice cream. Pt initially brought to [facility] but then transferred to [facility] due to acuity of patient. Acute hypoxic resp failure sec to aspiration. Improving CXR revealed B/L infiltrates consistent with PNM and possible aspiration. Cont IV antibx of zosyn and levaquin day # 3. Stat ECHO reviewed, EF 55-60%, no WMA Weaned off levophed Extubated 01/05, on nasal cannula, will transfer to [facility] Restarted diet Sputum cx pos for staph, await sens Septic shock likely related to above, resolved, weaned off pressors and will titrate down steroids. Appreciate mechanical project engineer recs. CAD - should remain on ASA, Statin, will restart on BB as well, trops elev likely from septic state COPD - Stable, cont on scheduled nebs and cont steroids ARF - Improving, likely acute on chronic - aggressive IVF - trend BMP Cr 1.6 on 01/05
[2017-01-05] MEDS ORDERED: BISACODYL 10 MG SUPP PR PRN (14:00)
[2017-01-05] MEDS ORDERED: MoRPHine SULFATE 2 MG/ML CARP ONE (14:18)
[2017-01-05] MEDS ORDERED: ASPIRIN 81 MG ECTAB PO ONE (14:30)
--- NOTE | 2017-01-05 18:32 | CRITICAL CARE PROGRESS NOTE ---
DATE: 01/05/2017 SUBJECTIVE: There were no acute events overnight. This is a patient who was transferred from [facility] to our facility secondary to acute hypoxemic respiratory failure and aspiration with shock. He was successfully extubated yesterday and was out of bed to a chair today. He was seen by speech therapy and is eating a chopped diet. He cannot find his lower denture plate. He is concerned that he feels constipated and he was also very specific about excluding his daughter, Seema, from any information regarding him. She lives in the home, but he tells me she is a "drug addict" and recently got out of intermediate. He denies pain to me but this afternoon asked for some pain medication for his back. He is not coughing up any sputum. PHYSICAL EXAMINATION: VITAL SIGNS: Maximum temperature 37, heart rate 60-70, blood pressure 88-141/60-70, oxygen saturation 92% on 6 liters nasal cannula, respiratory rate 15-20. 24-hour fluid balance is -923 mL. GENERAL: No bowel movement since admission. On exam, he is awake, alert and very pleasant. LUNGS: Have bibasilar rales, no rhonchi or wheezes. HEART: Regular rate and rhythm, no murmurs. ABDOMEN: Limited due to his seated position. Firm, nontender, nondistended with active bowel sounds. EXTREMITIES: No edema. LABORATORY DATA: White blood cell count 14.31, hemoglobin 8.1, hematocrit 24.1, platelets 160, left shift remains. Sodium 144, potassium 3.5, chloride 110, CO2 22, BUN 42, creatinine 1.6, calcium 7.7, phosphorus 2.3. LFTs within normal limits with the exception of direct bilirubin 0.3. Sputum culture showing Staph aureus, pansensitive. MEDICATIONS: Acetaminophen, [place], DuoNeb, aspirin, atorvastatin, Dulcolax, carvedilol, Colace, subcutaneous heparin, insulin sliding scale, Zofran, Protonix, Zosyn day 3, Levaquin day 3, MiraLax, half normal saline 75 mL per hour and Effexor. IMPRESSION: 1. Acute hypoxemic respiratory failure secondary to aspiration pneumonitis, successfully extubated yesterday. 2. Aspiration pneumonitis and staph pneumonia, pansensitive. 3. Shock, resolved. 4. Acute kidney injury, continues to improve. 5. Anemia, likely dilutional. No signs of acute blood loss. 6. Abdominal aortic aneurysm. 7. History of coronary artery disease and coronary stent in September of this year. [facility] that time. It does not appear that he has been taking his Plavix. 8. History of cerebrovascular accident. PLAN: NEUROLOGIC: [place] was started today for back pain. Discontinue fentanyl. PULMONARY: Incentive spirometry, bronchodilators, mobilize. Continue antibiotics. CARDIOVASCULAR: Discontinue arterial catheter as well as central venous catheter. I resumed the baby aspirin daily. I have held the Plavix that I started yesterday. I will call Dr. Galvez regarding this. The patient really cannot tell me whether or not he should be taking it. He thinks that the Plavix was started when the stent was placed. Consider resuming outpatient dose of amlodipine 5 mg daily and isosorbide mononitrate 30 mg daily when blood pressure allows. He was also on lisinopril 2.5 mg daily. GASTROINTESTINAL: Continue diet, Protonix changed to p.o. This may be able to be discontinued in the next day. Dulcolax and MiraLax were added today. RENAL: Continue IV fluids for now, I have decreased them to 75 mL per hour. INFECTIOUS DISEASE: Discontinue Levaquin, continue Zosyn as he was very ill on arrival to the intensive care unit. HEMATOLOGY: Continue subcutaneous heparin and SCDs. ENDOCRINE: Discontinue hydrocortisone. I do not see that his outpatient medications have been put into the computer. The list I have from him is as follows: 1. Atorvastatin 20 mg daily. 2. Amlodipine 5 mg p.o. daily. 3. Venlafaxine 75 mg p.o. b.i.d. 4. Isosorbide mononitrate 30 mg daily. 5. Carvedilol 3.125 mg b.i.d. 6. Lisinopril 2.5 mg daily. 7. Doxepin unknown dose. 8. Aspirin 81 mg daily. 9. Stool softener p.r.n. 10. Opioid pain medication p.r.n. He is stable for transfer from the intensive care unit. He has done remarkably well.
[2017-01-05] MEDS ORDERED: INSULIN ASPART 100 UNITS/ML 3 ML PEN SC SCH (21:00)
[2017-01-05] MEDS: HYDROCODONE/ACETAMOPHEN 5/325MG TAB PO PRN (21:02)
[2017-01-06] VITALS (9 sets, daily range): BP systolic 128–150; BP diastolic 62–74; PULSE 70–87; TEMP 36.4–37.2; O2SAT 92–96
[2017-01-06] MEDS: PIPERACILL/TAZOBAC IV 3.375 GM in DEXTROSE 5% 100ML IV SCH ×2 (00:01→08:57)
[2017-01-06] MEDS: ALBUT/IPRATROP 3MG/0.5MG NEB 3 ML VIAL INH SCH ×4 (01:59→19:34)
[2017-01-06] MEDS: SODIUM CHLORIDE 0.45% 1000ML 1,000 ML IV SCH ×2 (05:25→06:34)
[2017-01-06] MEDS: HEPARIN SOD 5000 UNIT/0.5 ML CARP SQ SCH ×3 (05:27→20:24)
[2017-01-06 05:42] LABS: BASO % 0.1 %; BASO ABS # 0.01 K/uL (0-0.2); EOS % 0.7 %; HEMATOCRIT 27.1 % (42-52); IG% 0.5 %; LYMPH % 4.9 %; MEAN CELL VOLUME 87.4 fL (80-100); MEAN CORPUSCULAR HEMOGLOBIN 28.4 pg (25-34); MEAN CORPUSCULAR HGB CONC 32.5 g/dl (32-36); MEAN PLATELET VOLUME 9.6 fL (7.4-10.4); MONO % 7.1 %; NEUT % 86.7 %; PLATELET COUNT 182 K/uL (130-400)
[2017-01-06 06:18] LABS: BUN/CREATININE RATIO 22.3 (10-20); CALCIUM 7.7 mg/dl (8.5-10.1); CREATININE 1.4 mg/dl (0.60-1.40); MAGNESIUM 1.9 mg/dl (1.8-2.4); PHOSPHORUS 2.2 mg/dl (2.5-4.9); POTASSIUM 3.4 mmol/L (3.5-5.1)
[2017-01-06 06:54] LABS: COMPLETE YES; TOXIC GRANULATION 1+
--- NOTE | 2017-01-06 07:30 | DIAGNOSTIC IMAGING REPORT ---
CHEST ONE VIEW PORTABLE CLINICAL HISTORY: f/u infiltrates pneumonia COMPARISON STUDY: 01/04/2017 FINDINGS: Interval extubation. Improving basilar infiltrative change. Baseline parenchymal fibrotic change. IMPRESSION: 1. Interval extubation. 2. Improving basilar parenchymal infiltrates Electronically signed by: Omar Hu M.D. 01/06/2017 7:28 AM Dictated Date/Time: 01/06/2017 7:28 AM
[2017-01-06] MEDS: HYDROCODONE/ACETAMOPHEN 5/325MG TAB PO PRN ×2 (08:37→20:22)
[2017-01-06] MEDS: ATORVASTATIN 20 MG TAB PO SCH (08:38)
[2017-01-06] MEDS: PANTOprazole SOD 40 MG TAB PO SCH (08:38)
[2017-01-06] MEDS: CARVEDILOL 3.125 MG TAB PO SCH ×2 (08:38→20:24)
[2017-01-06] MEDS: VENLAFAXINE HCL 50 MG TAB PO SCH ×2 (08:38→20:23)
[2017-01-06] MEDS: ASPIRIN 81 MG ECTAB PO SCH (08:39)
[2017-01-06] MEDS: DOCUSATE SODIUM 100 MG/10 ML UDC PO SCH ×2 (08:40→20:22)
[2017-01-06] MEDS: POLYETHYLENE (MIRALAX) 17 GM PACK PO SCH (08:40)
--- NOTE | 2017-01-06 09:16 | Pharmacy Progress Note ---
Pharmacy Glycemic Sign Off Nt Date of Service Jan 06, 2017. Assessment & Plan ASSESSMENT: * Pharmacy was consulted by Dr Spann on 01/02 for glycemic control and to write orders per [facility] inpatient glycemic control protocol. * Patient has been receiving/requiring 10 or less units of insulin per day for adequate glycemic control (while on steroids) * BSGs ranging 98-123 mg/dl * Regimen has only required minor adjustments over the past 48hrs to achieve this level of control * Dr. Spann d/c'd insulin orders as well as steroids yesterday PLAN FOR INPATIENT GLYCEMIC CONTROL: * No insulin at this time since steroids d/c'd yesterday and BSGs have been stable * Pharmacy is signing off of glycemic consult and will no longer be making adjustments to inpatient regimen. Please feel free to re-consult if needed. Thank you.
[2017-01-06] MEDS ORDERED: ASPI-428 PO (15:34)
[2017-01-06] MEDS ORDERED: ISOS30TA3 PO (15:34)
[2017-01-06] MEDS ORDERED: CARI350T28 PO (15:34)
[2017-01-06] MEDS ORDERED: DOXE10CA PO (15:34)
[2017-01-06] MEDS ORDERED: PANT40TA PO (15:34)
[2017-01-06] MEDS ORDERED: EFF/375 PO (15:34)
[2017-01-06] MEDS ORDERED: CARV3.12 PO (15:34)
[2017-01-06] MEDS ORDERED: AMLO-110 PO (15:34)
[2017-01-06] MEDS ORDERED: HYDR-4383 PO (15:34)
[2017-01-06] MEDS ORDERED: CLON1TAB3 PO (15:34)
[2017-01-06] MEDS ORDERED: ENAL10TA88 PO (15:34)
[2017-01-06] MEDS ORDERED: ATOR-22 PO (15:34)
[2017-01-06] MEDS ORDERED: CLOP1TAB5 PO (15:34)
[2017-01-06] MEDS ORDERED: LEVE750T PO (15:34)
[2017-01-06] MEDS ORDERED: LISI-729 PO (15:34)
[2017-01-06] MEDS ORDERED: FURO-85 PO (15:34)
[2017-01-06] MEDS ORDERED: ASPI325T39 PO (15:34)
[2017-01-06] MEDS ORDERED: ATEN-173 PO (15:34)
[2017-01-06] MEDS ORDERED: FOLI1TAB7 PO (15:34)
[2017-01-06] MEDS ORDERED: TAMS0.4C38 PO (15:34)
[2017-01-06] MEDS ORDERED: POTASSIUM CHLORIDE 10 MEQ TABCR PO STA (15:36)
[2017-01-06] MEDS ORDERED: ISOSORBIDE MONONITRATE 30 MG TABCR PO ONE (15:45)
[2017-01-06] MEDS ORDERED: MAGNESIUM SULFATE 1GM / D5W 1 GM in PREMIXED IN D5W 100 ML IV SCH (16:00)
--- NOTE | 2017-01-06 16:03 | Hospitalist Progress Note ---
Hospitalist Progress Note Date of Service Jan 06, 2017. Subjective Pt evaluation today including: conversation w/ patient, physical exam PO Intake: tolerating Voiding: james catheter in place Pt had a BM, is cj po, feeling better but just very tired, gets interrupted sleep due to vitals, etc. Requesting Ambien for sleep. Respiratory: No shortness of breath Cardiovascular: No chest pain Abdomen: No pain, No diarrhea, No GI bleeding All Other Systems: Reviewed and Negative Objective Vital Signs Date Time Temp Pulse Resp B/P (MAP) Pulse Ox O2 Delivery O2 Flow Rate FiO2 01/06/17 14:17 78 20 92 Nasal Cannula 5.0 01/06/17 12:00 Room Air 01/06/17 11:42 36.7 87 18 142/63 (89) 96 01/06/17 08:26 36.5 82 18 150/74 (99) 93 01/06/17 08:00 Room Air 01/06/17 07:15 70 18 93 Nasal Cannula 5.0 01/06/17 04:00 Room Air 01/06/17 04:00 37.2 80 22 137/62 (87) 95 Nasal Cannula 5.0 01/06/17 00:00 Nasal Cannula 2.0 01/05/17 23:50 36.8 75 22 123/63 (83) 93 Nasal Cannula 5.0 01/05/17 20:00 Nasal Cannula 2.0 01/05/17 19:36 37.2 81 24 126/66 (86) 95 Nasal Cannula 5.0 01/05/17 19:12 71 18 92 Nasal Cannula 5.0 01/05/17 17:26 36.8 76 18 142/68 (92) 91 Nasal Cannula 2.0 01/05/17 16:51 37.0 79 18 90 6.0 01/05/17 16:13 79 18 135/70 (91) 90 Nasal Cannula 6.0 01/05/17 16:00 Nasal Cannula 6.0 Physical Exam General Appearance: WD/WN, no apparent distress Eyes: normal inspection, sclerae normal ENT: hearing grossly normal Neck: trachea midline Respiratory/Chest: no respiratory distress, no accessory muscle use, + crackles (at bases bilat, otherwise clear) Cardiovascular: regular rate, rhythm, no edema, no gallop, no murmur Abdomen: normal bowel sounds, non tender, soft, no organomegaly Extremities: non-tender, normal inspection (except scabbed abrasion left knee) , no pedal edema, no calf tenderness Neurologic/Psychiatric: alert, normal mood/affect, oriented x 3 Skin: normal color, warm/dry, no rash Lymphatic: no adenopathy Laboratory Results Last 24 Hours Test 01/05/17 20:17 01/06/17 05:10 01/06/17 06:40 01/06/17 11:25 Bedside Glucose 98 mg/dl 123 mg/dl 120 mg/dl White Blood Count 10.20 K/uL Red Blood Count 3.10 M/uL Hemoglobin 8.8 g/dL Hematocrit 27.1 % Mean Corpuscular Volume 87.4 fL Mean Corpuscular Hemoglobin 28.4 pg Mean Corpuscular Hemoglobin Concent 32.5 g/dl Platelet Count 182 K/uL Mean Platelet Volume 9.6 fL Neutrophils (%) (Auto) 86.7 % Lymphocytes (%) (Auto) 4.9 % Monocytes (%) (Auto) 7.1 % Eosinophils (%) (Auto) 0.7 % Basophils (%) (Auto) 0.1 % Neutrophils # (Auto) 8.85 K/uL Lymphocytes # (Auto) 0.50 K/uL Monocytes # (Auto) 0.72 K/uL Eosinophils # (Auto) 0.07 K/uL Basophils # (Auto) 0.01 K/uL RDW Standard Deviation 48.6 fL RDW Coefficient of Variation 15.1 % Immature Granulocyte % (Auto) 0.5 % Immature Granulocyte # (Auto) 0.05 K/uL Toxic Granulation 1+ Sodium Level 145 mmol/L Potassium Level 3.4 mmol/L Chloride Level 111 mmol/L Carbon Dioxide Level 23 mmol/L Anion Gap 11.0 mmol/L Blood Urea Nitrogen 31 mg/dl Creatinine 1.40 mg/dl Est Creatinine Clear Calc Drug Dose 50.8 ml/min Estimated GFR () 56.2 Estimated GFR (Non- 48.5 BUN/Creatinine Ratio 22.3 Random Glucose 86 mg/dl Calcium Level 7.7 mg/dl Phosphorus Level 2.2 mg/dl Magnesium Level 1.9 mg/dl Assessment and Plan 76 y/o M Hx COPD, CAD s/p SHANE 09/2016 OM1, carotid artery stenosis (>70% HELENA, s/ p left CEA), PVD s/p left SFA stent, obesity, GERD and h/o bleeding PUD, mild , MR, ?SAH, AAA, admitted with acute hypoxemic respiratory failure secondary to aspiration of ice cream, here with MSSA aspiration PNA.. Pt initially brought to [facility] but then transferred to [facility] due to acuity of patient. Intubated and on 3 pressors,admitted to ICU. Extubated and transferred out of ICU. Acute hypoxic resp failure sec to aspiration. Improving CXR revealed B/L infiltrates consistent with PNM and possible aspiration. Hypotensive shock secondary to sepsis Received zosyn and levaquin x 4 days, now with MSSA, will change to Rocephin for total 10 days BPs high now Stat ECHO reviewed, EF 55-60%, no WMA Acute kidney injury, continues to improve, peak regulatory compliance coordinator 3.5 on admission, regulatory compliance coordinator 1.4 -avoid nephrotoxins -renally dose meds -continue to hold lisinopril -follow PRP -dc James CAD s/p recent SHANE/h/o chronic systolic CHF now with improved EF/EDGARDO/PAD/AAA/ Mild /MR/HTN- trop mildly elevated but stable, demand ischemia, no ongoing ACS. AAA 4.7 x 4.8 cm infrarenal slightly increased in size from previous -restart Plavix/DAPT given recent SHANE placement 3 months ago -continue ASA -continue statin -restart Coreg, isosorbide -continue to hold lisinopril for MARIA INES -restart amlodipine -follow AAA routinely as outpatient Anemia- hgb 8-9 here, review of [place] records shows h/o GI bleed from PUD last year with hgb 5 requiring transfusion. No obvious bleeding here. -check Fe studies, B12, folate, hemoccult stool -follow CBC -GI prophylaxis History of cerebrovascular accident-stable Chronic pain- -continue [place] Proph-PPI, heparin Dispo- Full, no cardioversion PT/OT evals
[2017-01-06] MEDS: CEFTRIAXONE SOD INJ 2000 MG in DEXTROSE 5% 50ML IV SCH (16:48)
[2017-01-06 17:17] LABS: FERRITIN 142.2 ng/ml (8.0-388.0)
[2017-01-06] MEDS: ZOLPIDEM TARTRATE 5 MG TAB PO PRN (20:22)
[2017-01-07] VITALS (8 sets, daily range): BP systolic 111–156; BP diastolic 59–73; PULSE 71–86; TEMP 36.5–36.9; O2SAT 88–93
[2017-01-07] MEDS: ALBUT/IPRATROP 3MG/0.5MG NEB 3 ML VIAL INH SCH ×4 (02:14→19:37)
[2017-01-07] MEDS: HEPARIN SOD 5000 UNIT/0.5 ML CARP SQ SCH ×3 (06:00→21:33)
[2017-01-07 07:31] LABS: BASO % 0.1 %; BASO ABS # 0.01 K/uL (0-0.2); COMPLETE YES; EOS % 0.9 %; LYMPH % 7.2 %; LYMPH ABS # 0.86 K/uL (1.2-3.4); MEAN CELL VOLUME 88.1 fL (80-100); MEAN CORPUSCULAR HEMOGLOBIN 26.7 pg (25-34); MEAN CORPUSCULAR HGB CONC 30.3 g/dl (32-36); MEAN PLATELET VOLUME 9.3 fL (7.4-10.4); MONO % 6.1 %; NEUT % 84.7 %; PLATELET COUNT 204 K/uL (130-400); RED BLOOD COUNT 3.52 M/uL (4.7-6.1); WHITE BLOOD COUNT 11.97 K/uL (4.8-10.8)
[2017-01-07 08:22] LABS: BUN/CREATININE RATIO 14.7 (10-20); CREATININE 1.3 mg/dl (0.60-1.40); MAGNESIUM 1.6 mg/dl (1.8-2.4); POTASSIUM 3.2 mmol/L (3.5-5.1)
[2017-01-07 08:36] LABS: CALCIUM 8.3 mg/dl (8.5-10.1)
[2017-01-07] MEDS: ATORVASTATIN 20 MG TAB PO SCH (08:42)
[2017-01-07] MEDS: CARVEDILOL 3.125 MG TAB PO SCH ×2 (08:42→20:21)
[2017-01-07] MEDS: HYDROCODONE/ACETAMOPHEN 5/325MG TAB PO PRN ×2 (08:42→20:21)
[2017-01-07] MEDS: ISOSORBIDE MONONITRATE 30 MG TABCR PO SCH (08:43)
[2017-01-07] MEDS: PANTOprazole SOD 40 MG TAB PO SCH (08:43)
[2017-01-07] MEDS: AMLODIPINE BESYLATE 5 MG TAB PO SCH (08:43)
[2017-01-07] MEDS: VENLAFAXINE HCL 50 MG TAB PO SCH ×2 (08:43→20:22)
[2017-01-07] MEDS: DOCUSATE SODIUM 100 MG/10 ML UDC PO SCH ×2 (08:44→20:14)
[2017-01-07] MEDS: POLYETHYLENE (MIRALAX) 17 GM PACK PO SCH (08:44)
[2017-01-07] MEDS: ASPIRIN 81 MG ECTAB PO SCH (08:44)
[2017-01-07] MEDS: CLOPIDOGREL BISULFATE 75 MG TAB PO SCH (08:46)
[2017-01-07] MEDS ORDERED: POTASSIUM CHLORIDE 10 MEQ TABCR PO STA (08:54)
[2017-01-07] MEDS: MAGNESIUM SULFATE 1GM / D5W 1 GM in PREMIXED IN D5W 100 ML IV SCH ×2 (10:53→11:55)
[2017-01-07] MEDS: CEFTRIAXONE SOD INJ 2000 MG in DEXTROSE 5% 50ML IV SCH (18:20)
--- NOTE | 2017-01-07 18:39 | Hospitalist Progress Note ---
Hospitalist Progress Note Date of Service Jan 07, 2017. Subjective Pt evaluation today including: conversation w/ patient Voiding: no voiding problems Feeling good. Walked around with PT and did well All Other Systems: Reviewed and Negative Objective Vital Signs Date Time Temp Pulse Resp B/P (MAP) Pulse Ox O2 Delivery O2 Flow Rate FiO2 01/07/17 15:24 36.5 77 20 145/73 (97) 91 Nasal Cannula 3.0 01/07/17 14:10 76 20 88 Room Air 01/07/17 12:00 Nasal Cannula 4.0 01/07/17 11:19 36.9 82 20 111/59 (76) 90 Nasal Cannula 4.0 01/07/17 08:00 Nasal Cannula 4.0 01/07/17 07:25 36.9 86 19 156/73 (100) 90 Nasal Cannula 4.0 01/07/17 06:55 71 20 90 Nasal Cannula 4.0 01/07/17 04:00 Nasal Cannula 4.0 01/07/17 04:00 36.7 81 20 145/70 (95) 91 Nasal Cannula 4.0 01/06/17 23:59 Nasal Cannula 4.0 01/06/17 22:37 36.4 73 18 133/68 (89) 92 Nasal Cannula 4.0 01/06/17 20:00 Nasal Cannula 4.0 01/06/17 19:56 36.7 79 22 128/62 (84) 93 Nasal Cannula 4.0 01/06/17 19:37 71 18 94 Nasal Cannula 4.5 Physical Exam General Appearance: WD/WN, no apparent distress Eyes: normal inspection, sclerae normal ENT: hearing grossly normal Neck: trachea midline Respiratory/Chest: no respiratory distress, no accessory muscle use, + crackles (at bases bilat, otherwise clear) Cardiovascular: regular rate, rhythm, no edema, no gallop, no murmur Abdomen: normal bowel sounds, non tender, soft Extremities: non-tender, normal inspection, no calf tenderness Neurologic/Psychiatric: alert, normal mood/affect, oriented x 3 Skin: normal color, warm/dry, no rash Laboratory Results Last 24 Hours Test 01/07/17 07:04 White Blood Count 11.97 K/uL Red Blood Count 3.52 M/uL Hemoglobin 9.4 g/dL Hematocrit 31.0 % Mean Corpuscular Volume 88.1 fL Mean Corpuscular Hemoglobin 26.7 pg Mean Corpuscular Hemoglobin Concent 30.3 g/dl Platelet Count 204 K/uL Mean Platelet Volume 9.3 fL Neutrophils (%) (Auto) 84.7 % Lymphocytes (%) (Auto) 7.2 % Monocytes (%) (Auto) 6.1 % Eosinophils (%) (Auto) 0.9 % Basophils (%) (Auto) 0.1 % Neutrophils # (Auto) 10.14 K/uL Lymphocytes # (Auto) 0.86 K/uL Monocytes # (Auto) 0.73 K/uL Eosinophils # (Auto) 0.11 K/uL Basophils # (Auto) 0.01 K/uL RDW Standard Deviation 49.1 fL RDW Coefficient of Variation 15.3 % Immature Granulocyte % (Auto) 1.0 % Immature Granulocyte # (Auto) 0.12 K/uL Sodium Level 143 mmol/L Potassium Level 3.2 mmol/L Chloride Level 107 mmol/L Carbon Dioxide Level 26 mmol/L Anion Gap 10.0 mmol/L Blood Urea Nitrogen 19 mg/dl Creatinine 1.30 mg/dl Est Creatinine Clear Calc Drug Dose 53.8 ml/min Estimated GFR () 61.4 Estimated GFR (Non- 53.0 BUN/Creatinine Ratio 14.7 Random Glucose 125 mg/dl Calcium Level 8.3 mg/dl Phosphorus Level 2.0 mg/dl Magnesium Level 1.6 mg/dl Total Bilirubin 0.7 mg/dl Direct Bilirubin 0.2 mg/dl Aspartate Amino Transf (AST/SGOT) 19 U/L Alanine Aminotransferase (ALT/SGPT) 18 U/L Alkaline Phosphatase 67 U/L Total Protein 6.7 gm/dl Albumin 2.1 gm/dl Assessment and Plan 76 y/o M Hx COPD, CAD s/p SHANE 09/2016 OM1, carotid artery stenosis (>70% HELENA, s/ p left CEA), PVD s/p left SFA stent, obesity, GERD and h/o bleeding PUD, mild , MR, ?SAH, AAA, admitted with acute hypoxemic respiratory failure secondary to aspiration of ice cream, here with MSSA aspiration PNA.. Pt initially brought to [facility] but then transferred to [facility] due to acuity of patient. Intubated and on 3 pressors,admitted to ICU. Extubated and transferred out of ICU. Acute hypoxic resp failure sec to aspiration. Improving CXR revealed B/L infiltrates consistent with PNM and possible aspiration. Hypotensive shock secondary to sepsis Received zosyn and levaquin x 4 days, now with MSSA, will change to Rocephin for total 10 days BPs high now Stat ECHO reviewed, EF 55-60%, no WMA Still requiring O2 but much improved. -2 step prior to dc tomorrow Acute kidney injury, continues to improve, peak veterinary toxicologist 3.5 on admission, veterinary toxicologist 1.3 today -avoid nephrotoxins -renally dose meds -ok to restart lisinopril -follow PRP CAD s/p recent SHANE/h/o chronic systolic CHF now with improved EF/EDGARDO/PAD/AAA/ Mild /MR/HTN- trop mildly elevated but stable, demand ischemia, no ongoing ACS. BPs improved with restarting home meds AAA 4.7 x 4.8 cm infrarenal slightly increased in size from previous -restarted Plavix/DAPT given recent SHANE placement 3 months ago -continue ASA -continue statin -restarted Coreg, isosorbide -ok to restart lisinopril today -restarted amlodipine -follow AAA routinely as outpatient Anemia- hgb 8-9 here, review of [place] records shows h/o GI bleed from PUD last year with hgb 5 requiring transfusion. No obvious bleeding here. Fe studies show mildly low transferrin sat at 13% but otherwise consistent with anemia of chronic disease. B12, folate normal here. Hemoccult stool pending -follow CBC -GI prophylaxis History of cerebrovascular accident-stable Chronic pain- -continue [place] Proph-PPI, heparin Dispo- Full, no cardioversion PT/OT evals recommend home PT To home hopefully tomorrow Home O2 needed most likely, 2 step tomorrow
[2017-01-07] MEDS ORDERED: LISINOPRIL 2.5 MG TAB PO ONE (19:30)
[2017-01-07] MEDS: ZOLPIDEM TARTRATE 5 MG TAB PO PRN (20:21)
[2017-01-08] VITALS (10 sets, daily range): BP systolic 112–160; BP diastolic 60–80; PULSE 72–90; TEMP 36.6–37.2; O2SAT 90–92
[2017-01-08] MEDS: ALBUT/IPRATROP 3MG/0.5MG NEB 3 ML VIAL INH SCH ×3 (02:22→14:22)
[2017-01-08] MEDS: HEPARIN SOD 5000 UNIT/0.5 ML CARP SQ SCH (05:46)
[2017-01-08 06:26] LABS: MEAN CELL VOLUME 87.6 fL (80-100); MEAN CORPUSCULAR HEMOGLOBIN 28.4 pg (25-34); MEAN CORPUSCULAR HGB CONC 32.4 g/dl (32-36); MEAN PLATELET VOLUME 8.9 fL (7.4-10.4); PLATELET COUNT 208 K/uL (130-400); RED BLOOD COUNT 3.31 M/uL (4.7-6.1); WHITE BLOOD COUNT 10.37 K/uL (4.8-10.8)
[2017-01-08 06:59] LABS: ANISOCYTOSIS PRESENT; BASO % 0.1 %; BASO ABS # 0.01 K/uL (0-0.2); COMPLETE YES; EOS % 1.1 %; HYPERSEGMENTED POLYS 1+; HYPOCHROMIA PRESENT; IG% 1.8 %; LYMPH % 8.2 %; LYMPH ABS # 0.85 K/uL (1.2-3.4); MONO % 9.7 %; NEUT % 79.1 %; TOXIC GRANULATION 1+
[2017-01-08 07:04] LABS: BUN/CREATININE RATIO 12.1 (10-20); CALCIUM 8.2 mg/dl (8.5-10.1); CREATININE 1.1 mg/dl (0.60-1.40); POTASSIUM 3.5 mmol/L (3.5-5.1)
[2017-01-08] MEDS ORDERED: POTASSIUM CHLORIDE 10 MEQ TABCR PO STA (07:52)
[2017-01-08] MEDS ORDERED: LISINOPRIL 2.5 MG TAB PO SCH (09:00)
[2017-01-08] MEDS: DOCUSATE SODIUM 100 MG/10 ML UDC PO SCH ×2 (09:00→09:38)
[2017-01-08] MEDS: POLYETHYLENE (MIRALAX) 17 GM PACK PO SCH (09:00)
--- NOTE | 2017-01-08 09:05 | DIAGNOSTIC IMAGING REPORT ---
CHEST 2 VIEWS ROUTINE HISTORY: Follow-up pneumonia. COMPARISON: Chest 01/06/2017. FINDINGS: Emphysema. No pleural effusions. No pneumothorax. The heart remains borderline enlarged. Patchy airspace opacities within the bilateral lower lobe posteriorly are not significantly changed. IMPRESSION: No significant change in the bilateral lower lobe airspace opacities consistent with a pneumonia. Recommend follow-up to ensure resolution. Electronically signed by: Clay Barton M.D. 01/08/2017 9:03 AM Dictated Date/Time: 01/08/2017 9:02 AM
[2017-01-08] MEDS: HYDROCODONE/ACETAMOPHEN 5/325MG TAB PO PRN (09:35)
[2017-01-08] MEDS: CLOPIDOGREL BISULFATE 75 MG TAB PO SCH (09:39)
[2017-01-08] MEDS: ASPIRIN 81 MG ECTAB PO SCH (09:39)
[2017-01-08] MEDS: CARVEDILOL 3.125 MG TAB PO SCH (09:39)
[2017-01-08] MEDS: ISOSORBIDE MONONITRATE 30 MG TABCR PO SCH (09:40)
[2017-01-08] MEDS: AMLODIPINE BESYLATE 5 MG TAB PO SCH (09:40)
[2017-01-08] MEDS: VENLAFAXINE HCL 50 MG TAB PO SCH (09:41)
[2017-01-08] MEDS: PANTOprazole SOD 40 MG TAB PO SCH (09:42)
[2017-01-08] MEDS: ATORVASTATIN 20 MG TAB PO SCH (10:57)
[2017-01-08] MEDS ORDERED: LSN25 PO (14:29)
[2017-01-08] MEDS ORDERED: AMOX875T PO (14:29)
[2017-01-08] MEDS ORDERED: MRLP17 PO (14:29)
[2017-01-08] MEDS ORDERED: CLOP1TAB5 PO (14:29)
[2017-01-08] MEDS ORDERED: PRT40 PO (14:29)
--- NOTE | 2017-01-08 14:37 | Discharge Instructions ---
Discharge Instructions Date of Service Jan 08, 2017. Admission Reason for Admission: Pneumonia Discharge Discharge Diagnosis / Problem: Aspiration Pneumonia Discharge Goals Goal(s): Improve disease control, Diagnostic testing, Therapeutic intervention Activity Recommendations Activity Limitations: as noted below Lifting Limitations: gradually increase as tolerated Exercise/Sports Limitations: gradually increase as tolerated Shower/Bathe: no limitations Physical and Occupational Therapy will be evaluating you at your home . Instructions / Follow-Up Instructions / Follow-Up You were admitted with respiratory failure and aspiration pneumonia. You were initially in the ICU with severely low blood pressures and were on a ventilator. You will need to finish out a course of antibiotics at home. You should follow all of the medications on your list given to you at the time of discharge. You should follow up with your PCP within 1 week and will need a follow up chest xray to make sure your pneumonia completely clears up in the next 3-4 weeks. You ended up NOT NEEDING ANY OXYGEN as your oxygen levels actually increased when you get up and move around. Your visiting nurse can keep an eye on your oxygen levels once you return home as well. Current Hospital Diet Patient's current hospital diet: AHA Diet (Heart Healthy) Discharge Diet Recommended Diet: AHA Diet (Heart Healthy) Procedures Procedures Performed: Chest xrays Echocardiogram Pending Studies Studies pending at discharge: no Laboratory Results Last 24 Hours Test 01/08/17 06:10 White Blood Count 10.37 K/uL Red Blood Count 3.31 M/uL Hemoglobin 9.4 g/dL Hematocrit 29.0 % Mean Corpuscular Volume 87.6 fL Mean Corpuscular Hemoglobin 28.4 pg Mean Corpuscular Hemoglobin Concent 32.4 g/dl Platelet Count 208 K/uL Mean Platelet Volume 8.9 fL Neutrophils (%) (Auto) 79.1 % Lymphocytes (%) (Auto) 8.2 % Monocytes (%) (Auto) 9.7 % Eosinophils (%) (Auto) 1.1 % Basophils (%) (Auto) 0.1 % Neutrophils # (Auto) 8.20 K/uL Lymphocytes # (Auto) 0.85 K/uL Monocytes # (Auto) 1.01 K/uL Eosinophils # (Auto) 0.11 K/uL Basophils # (Auto) 0.01 K/uL RDW Standard Deviation 48.8 fL RDW Coefficient of Variation 15.2 % Immature Granulocyte % (Auto) 1.8 % Immature Granulocyte # (Auto) 0.19 K/uL Hypersegmented Polys 1+ Toxic Granulation 1+ Hypochromasia PRESENT Anisocytosis PRESENT Sodium Level 141 mmol/L Potassium Level 3.5 mmol/L Chloride Level 106 mmol/L Carbon Dioxide Level 26 mmol/L Anion Gap 9.0 mmol/L Blood Urea Nitrogen 13 mg/dl Creatinine 1.10 mg/dl Est Creatinine Clear Calc Drug Dose 63.6 ml/min Estimated GFR () 75.2 Estimated GFR (Non- 64.9 BUN/Creatinine Ratio 12.1 Random Glucose 136 mg/dl Calcium Level 8.2 mg/dl Magnesium Level 2.0 mg/dl Hemoglobin A1c Test 01/04/17 06:08 Range/Units Estimated Average Glucose 134 mg/dl Hemoglobin A1c 6.3 H 4.5-5.6 % Medical Emergencies . Who to Call and When: Medical Emergencies: If at any time you feel your situation is an emergency, please call 911 immediately. . Non-Emergent Contact Non-Emergency issues call your: Primary Care Provider Call Non-Emergent contact if: you have a fever, you have any medication questions . . "Provider Documentation" section prepared by Lazara Sood. . VTE Core Measure Inpt VTE Proph given/why not?: Unfractionated heparin SQ
--- NOTE | 2017-01-10 08:12 | EDITING REQUIRED CODING QUERY ---
CODING QUERY To promote full compliance with coding requirements relating to patient care, provider participation is requested in all cases of concrete float maker uncertainty. Please assist us with the question(s) below: Coding Question(s): Please clarify below, in your clinical opinion, to clarify the source of the Severe Sepsis with Septic Shock. ( x ) Source is Aspiration Pneumonia ( ) Source is other infectious source- Specify Physician's Response(s): Thank you Yeimi Schwarz Principal Diagnosis: "_that condition established after study, to be chiefly responsible for occasioning the admission of the patient to the hospital for care." Co-Existing Principal Diagnosis: "_when two or more diagnoses equally meet the criteria for principal diagnosis as determined by the circumstances of admission, diagnostic work up, and/or therapy provided, and the Alphabetic Index, Tabular List, or another coding guideline does not provide sequencing direction, any one of the diagnoses may be sequenced first." "When the physician has documented what appears to be a current diagnosis in the body of the record, but has not included the diagnosis in the final diagnostic statement, the physician should be asked whether the diagnosis should be added." (Source Coding [facility] 2 QTR90. p3-4)
--- NOTE | 2017-01-10 08:15 | EDITING REQUIRED CODING QUERY ---
CODING QUERY To promote full compliance with coding requirements relating to patient care, provider participation is requested in all cases of pediatric nurse uncertainty. Please assist us with the question(s) below: Coding Question(s): Please clarify below, in your clinical opinion, regarding the specific associated organ failure(s) that is cause by the Severe Sepsis with Septic Shock. ( x ) Acute Kidney Failure ( x ) Acute Respiratory Failure ( ) Other: Specify Physician's Response(s): Thank you Yeimi Schwarz Principal Diagnosis: "_that condition established after study, to be chiefly responsible for occasioning the admission of the patient to the hospital for care." Co-Existing Principal Diagnosis: "_when two or more diagnoses equally meet the criteria for principal diagnosis as determined by the circumstances of admission, diagnostic work up, and/or therapy provided, and the Alphabetic Index, Tabular List, or another coding guideline does not provide sequencing direction, any one of the diagnoses may be sequenced first." "When the physician has documented what appears to be a current diagnosis in the body of the record, but has not included the diagnosis in the final diagnostic statement, the physician should be asked whether the diagnosis should be added." (Source Coding Clinic 2 QTR90. p3-4)
--- NOTE | 2017-01-26 14:53 | Discharge Summary ---
Discharge Summary Date of Service Jan 08, 2017. Discharge Summary Admission Date: Jan 02, 2017 at 19:04 Discharge Date: Jan 08, 2017 Discharge Disposition: Home with services Principal Diagnosis: Acute hypoxemic respiratory failure, Aspiration PNA Problems/Secondary Diagnoses: Severe sepsis/Septic shock COPD CAD s/p SHAEN 09/2016 OM1 Carotid artery stenosis (>70% HELENA, s/p left CEA) PVD s/p left SFA stent Obesity GERD and h/o bleeding PUD Mild-moderate Mild MR H/o ?SAH AAA MSSA aspiration PNA Acute kidney injury Chronic combined systolic and diastolic CHF HTN Demand ischemia Anemia of chronic disease History of cerebrovascular accident Chronic pain syndrome Procedures: Multiple CXRs: 1. Tip of endotracheal tube 8.1 cm above the sidra. 2. Dense bibasilar consolidation suggestive of pneumonia, potentially on the basis of aspiration given this distribution. 3. Tip of nasogastric tube obscured but at least within the distal esophagus. ECHO: * The study was technically limited. * Limited views were obtained. * Left ventricular systolic function is low normal. * Grade I diastolic dysfunction, (abnormal relaxation pattern). * Mild to moderate valvular aortic stenosis. * Right ventricular systolic pressure is normal. Consultations: Critical Care Medication Reconciliation New Medications: Amoxicillin & Pot Clavulanate (Augmentin 875-125 mg) 1 Tab Tab 875 MG PO BID for 5 Days, #10 TAB Lisinopril (Lisinopril) 2.5 Mg Tab 2.5 MG PO QAM for 30 Days, #30 TAB Pantoprazole (Pantoprazole Sodium) 40 Mg Tab 40 MG PO QAM for 30 Days, #30 TAB Polyethylene (Miralax) 17 Gm Pow 17 GM PO DAILY for 30 Days, #1 BTL Continued Medications: Amlodipine (Norvasc) 5 Mg Tab 5 MG PO DAILY, TAB Med list obtained from [facility] transfer information 10/08/16 Aspirin (Ecotrin Low Strength) 81 Mg Tab 1 TAB PO DAILY for 90 Days, #90 TAB 3 Refills Med list obtained from [facility] transfer information 10/08/16 Atorvastatin (Lipitor) 20 Mg Tab 20 MG PO DAILY, TAB Med list obtained from [facility] transfer information 10/08/16 Carvedilol (Coreg) 3.125 Mg Tab 1 TAB PO BID for 90 Days, #180 TAB 1 Refill Med list obtained from [facility] transfer information 10/08/16 Clopidogrel Bisulfate (Plavix) 75 Mg Tab 75 MG PO DAILY for 30 Days, #30 TAB (This prescription has been renewed) Med list obtained from [facility] transfer information 10/08/16 Isosorbide Mononitrate Ext Rel (Imdur Ext Rel) 30 Mg Ertab 30 MG PO QAM, TAB Med list obtained from [facility] transfer information 10/08/16 Venlafaxine Hcl (Effexor) 37.5 Mg Tab 75 MG PO BID for 30 Days, #120 TAB 1 Refill Med list obtained from [facility] transfer information 10/08/16 Discontinued Medications: Lisinopril (Zestril) 5 Mg Tab 2.5 MG PO DAILY, TAB Med list obtained from [facility] transfer information 10/08/16 Discharge Exam Review of Systems: Constitutional: No fever Eyes: No problem reported ENT: No problem reported Respiratory: No cough, No shortness of breath Cardiovascular: No chest pain Abdomen: + constipation, No pain, No nausea, No vomiting Musculoskeletal: No problem reported Genitourinary - Male: No problem reported Neurologic: No problem reported Psychiatric: No problem reported Endocrine: No problem reported Hematologic / Lymphatic: No problem reported Integumentary: No problem reported Physical Exam: General Appearance: WD/WN, no apparent distress Eyes: normal inspection, sclerae normal ENT: hearing grossly normal, pharynx normal Neck: trachea midline Respiratory/Chest: no respiratory distress, no accessory muscle use, + crackles (at bases bilat) Cardiovascular: regular rate, rhythm, no edema, no gallop, no murmur Abdomen / GI: normal bowel sounds, non tender, soft, no organomegaly Extremities: no calf tenderness, no pedal edema Neurologic/Psychiatric: alert, normal mood/affect, oriented x 3 Skin: normal color, warm/dry, no rash Hospital Course 76 y/o M Hx COPD, CAD s/p SHANE 09/2016 OM1, carotid artery stenosis (>70% HELENA, s/ p left CEA), PVD s/p left SFA stent, obesity, GERD and h/o bleeding PUD, mild , MR, ?SAH, AAA, admitted with acute hypoxemic respiratory failure secondary to aspiration of ice cream, here with MSSA aspiration PNA.. Pt initially brought to [facility] but then transferred to [facility] due to acuity of patient. Intubated and on 3 pressors,admitted to ICU. Extubated and transferred out of ICU. Acute hypoxic resp failure sec to aspiration. Improving CXR revealed B/L infiltrates consistent with PNM and possible aspiration. Hypotensive shock secondary to sepsis Received zosyn and levaquin x 4 days, now with MSSA, then changed to Rocephin for total 10 days-dc to home on po Augmentin BPs high now and antihypertensives to be restarted Stat ECHO reviewed, EF 55-60%, no WMA Not requiring O2 at time of discharge Acute kidney injury, continues to improve, peak radiation control technician 3.5 on admission, radiation control technician 1.1 on day of discharge -avoid nephrotoxins -renally dose meds -ok to restart lisinopril -follow PRP as outpatient periodically CAD s/p recent SHANE/h/o chronic systolic CHF now with improved EF/EDGARDO/PAD/AAA/ Mild /MR/HTN- trop mildly elevated but stable, demand ischemia, no ongoing ACS. BPs improved with restarting home meds AAA 4.7 x 4.8 cm infrarenal slightly increased in size from previous -restarted Plavix/DAPT given recent SHANE placement 3 months ago -continue ASA -continue statin -restarted Coreg, isosorbide -restart lisinopril -restarted amlodipine -follow AAA routinely as outpatient and consider Vascular Surgery referral Anemia- hgb 8-9 here, review of [place] records shows h/o GI bleed from PUD last year with hgb 5 requiring transfusion. No obvious bleeding here. Fe studies show mildly low transferrin sat at 13% but otherwise consistent with anemia of chronic disease. B12, folate normal here. Hemoccult stool ordered but not collected during admission -follow CBC as outpatient -GI prophylaxis History of cerebrovascular accident-stable Chronic pain- -continue [place] Proph-PPI, heparin Dispo-home with home PT Total Time Spent: Greater than 30 minutes This includes examination of the patient, discharge planning, medication reconciliation, and communication with other providers. Discharge Instructions Please refer to the electronic Patient Visit Report (Discharge Instructions) for additional information. Follow-Up PCP within 1 week Repeat chest xray in 3-4 weeks Additional Copies To [place] Franco M.D.
== END 2017-01-08 17:38 | disposition home health service (06) | DRG 871 ==
LOC: C.MSICU 17:05 → UNDOADMIN 17:05 → C.MSICU 19:04 → C.2T 01-05 17:14
PROVIDERS: ADMIT Internal Medicine; ATTEND Family Medicine
PROC: 5A1945Z Respiratory Ventilation, 24-96 Consecutive Hours (ICD-10-PCS; principal; 2017-01-02)
PROC: 06HN33Z Insertion of Infusion Device into Left Femoral Vein, Percutaneous Approach (ICD-10-PCS; 2017-01-02)
PROC: 04HY32Z Insertion of Monitoring Device into Lower Artery, Percutaneous Approach (ICD-10-PCS; 2017-01-02)
DX: A41.9 Sepsis, unspecified organism (principal); J69.0 Pneumonitis due to inhalation of food and vomit; R65.21 Severe sepsis with septic shock; J96.01 Acute respiratory failure with hypoxia; N17.0 Acute kidney failure with tubular necrosis; I24.8 Other forms of acute ischemic heart disease; I50.22 Chronic systolic (congestive) heart failure; B95.61 Methicillin susceptible Staphylococcus aureus infection as the cause of diseases classified elsewhere; E83.42 Hypomagnesemia; D63.8 Anemia in other chronic diseases classified elsewhere; I11.0 Hypertensive heart disease with heart failure; J44.9 Chronic obstructive pulmonary disease, unspecified; I25.10 Atherosclerotic heart disease of native coronary artery without angina pectoris; I73.9 Peripheral vascular disease, unspecified; E78.5 Hyperlipidemia, unspecified; I71.4 Abdominal aortic aneurysm, without rupture; G89.29 Other chronic pain; K21.9 Gastro-esophageal reflux disease without esophagitis; E66.9 Obesity, unspecified; F17.210 Nicotine dependence, cigarettes, uncomplicated; Z51.81 Encounter for therapeutic drug level monitoring; Z79.899 Other long term (current) drug therapy; Z79.891 Long term (current) use of opiate analgesic; Z79.82 Long term (current) use of aspirin; Z79.02 Long term (current) use of antithrombotics/antiplatelets; Z68.29 Body mass index [BMI] 29.0-29.9, adult; Z74.09 Other reduced mobility; Z86.73 Personal history of transient ischemic attack (TIA), and cerebral infarction without residual deficits